=== PATIENT | male | born 1960 | race Caucasian/White ===

== ENCOUNTER 2019-04-07 14:05 | Outpatient (CLI) | payer OTHER, SELFPAY ==
[2019-04-07 14:20] VITALS: BP 147/86; PULSE 85; RESP 16; TEMP 36.6; O2SAT 98
== END 2019-04-07 14:06 | disposition home or self-care (01) ==
LOC: RHEOACUTE 14:08
PROVIDERS: Family Provider Nurse Practitioner; PCP Nurse Practitioner; Visit Provider Nurse Practitioner
DX: L40.50 Arthropathic psoriasis, unspecified (principal)
CPT/HCPCS: 96365; J0129

== ENCOUNTER 2019-05-05 15:20 | Outpatient (CLI) | payer OTHER, SELFPAY ==
[2019-05-05 15:35] VITALS: BP 158/86; PULSE 85; RESP 14; TEMP 36.6
--- NOTE | 2019-05-05 17:50 | PC.NURSE ---
INFUSION STARTED AT 1600 VIA IV TO LEFT HAND.
--- NOTE | 2019-05-05 17:50 | PC.NURSE ---
1650 INFUSION COMPLETE. NOTED SMALL AMOUNT OF SWELLING TO L HAND IV SITE WHEN REMOVING IV. IV CATH REMOVED. PRESSURE DRESSING APPLIED.
[2019-05-05 17:55] VITALS: BP 150/80; PULSE 88; RESP 16; TEMP 36.6
== END 2019-05-05 15:21 | disposition home or self-care (01) ==
LOC: RHEOACUTE 15:20
PROVIDERS: Family Provider Nurse Practitioner; PCP Nurse Practitioner; Visit Provider Internal Medicine Rheumatology
DX: L40.50 Arthropathic psoriasis, unspecified (principal); Z11.59 Encounter for screening for other viral diseases; Z79.899 Other long term (current) drug therapy; Z11.1 Encounter for screening for respiratory tuberculosis; L40.8 Other psoriasis; M67.832 Other specified disorders of synovium, left wrist; Z72.89 Other problems related to lifestyle
CPT/HCPCS: 36415; 80076; 82565; 86431; 86480; 86704; 86803; 87340; 96365; 99214; J0129

== ENCOUNTER → 2019-05-05 15:41 | Outpatient (BNVA) | payer OTHER, SELFPAY | PROVIDERS: Family Provider Nurse Practitioner; PCP Nurse Practitioner; Visit Provider Internal Medicine Rheumatology | DX: L40.50 Arthropathic psoriasis, unspecified (principal); Z71.89 Other specified counseling; Z79.899 Other long term (current) drug therapy; M67.832 Other specified disorders of synovium, left wrist | CPT/HCPCS: 85025 ==

== ENCOUNTER 2019-05-10 16:21 | Outpatient (CLI) | payer OTHER, SELFPAY ==
--- NOTE | 2019-05-10 16:27 | XR_ITS ---
WS: [id number] Chest PA inspiration and expiration, lateral views, 05/10/2019 Clinical Data: psoriatic arthritis, Comparison: PA and lateral chest, 05/08/2018. Findings: No nodules, masses or effusions are seen. The heart is normal. The pulmonary vascularity is not increased. No pneumonia or pneumothorax is seen. No air trapping on expiration was seen. XR/XR chest 3V [id number] Impression: Negative chest.
--- NOTE | 2019-05-10 16:27 | XR_ITS ---
WS: [id number] Left foot, 2 views, 05/10/2019 Clinical Data: psoriatic arthritis, pain Comparison: Left foot x-ray, 11/04/2016. Findings: No fractures or dislocations are seen. There is erosion of the lateral aspect of the head of the left fifth metatarsal unchanged.. The joint spaces and soft tissues are normal. No periarticular demineralization or calcifications seen. There is a plantar spur. XR/XR foot LT 2V [id number] Impression: 1. No change in erosion of the lateral aspect of left fifth metacarpal head. 2. No change in plantar spur.
--- NOTE | 2019-05-10 16:27 | XR_ITS ---
WS: [id number] Right foot, 2 views, 05/10/2019 Clinical Data: psoriatic arthritis, pain Comparison: Right foot x-ray, 11/04/2016. Findings: No fractures or dislocations are seen. There is erosion of the lateral aspect of the head of the righ t fifth metatarsal. No periarticular demineralization or calcifications are seen. The joint spaces an d soft tissues are normal. There is a plantar spur XR/XR foot RT 2V [id number] Impression: 1. No change in erosion of the lateral aspect of the head of the right fifth me tatarsal. 2. Small plantar spur.
== END 2019-05-10 16:22 | disposition home or self-care (01) ==
PROVIDERS: Family Provider Nurse Practitioner; PCP Nurse Practitioner; Visit Provider Internal Medicine Rheumatology
DX: L40.50 Arthropathic psoriasis, unspecified (principal); M77.8 Other enthesopathies, not elsewhere classified
CPT/HCPCS: 71047; 73620

== ENCOUNTER 2019-06-02 12:44 | Outpatient (CLI) | payer OTHER, SELFPAY ==
[2019-06-02 13:00] VITALS: BP 156/79; PULSE 84; RESP 16; TEMP 36.5; O2SAT 98
== END 2019-06-02 12:45 | disposition home or self-care (01) ==
LOC: RHEOACUTE 12:45
PROVIDERS: Family Provider Nurse Practitioner; PCP Nurse Practitioner; Visit Provider Internal Medicine Rheumatology
DX: L40.50 Arthropathic psoriasis, unspecified (principal)
CPT/HCPCS: 96365; J0129

== ENCOUNTER 2019-07-07 13:14 | Outpatient (CLI) | payer OTHER, SELFPAY ==
[2019-07-07 13:56] VITALS: BP 140/84; PULSE 63; RESP 16; TEMP 36.6; O2SAT 96
[2019-07-07 15:57] VITALS: BP 146/84; PULSE 76; RESP 16; TEMP 36.6; O2SAT 97
== END 2019-07-07 13:15 | disposition home or self-care (01) ==
LOC: RHEOACUTE 13:14
PROVIDERS: Family Provider Nurse Practitioner; PCP Nurse Practitioner; Visit Provider Internal Medicine Rheumatology
DX: L40.50 Arthropathic psoriasis, unspecified (principal); M06.00 Rheumatoid arthritis without rheumatoid factor, unspecified site; L40.0 Psoriasis vulgaris; Z79.899 Other long term (current) drug therapy
CPT/HCPCS: 36415; 96365; 99214; J0129

== ENCOUNTER 2019-08-18 15:31 | Outpatient (CLI) | payer OTHER, SELFPAY ==
[2019-08-18 15:57] VITALS: BP 140/83; PULSE 78; RESP 16; TEMP 36.5; O2SAT 97
[2019-08-18 17:40] VITALS: BP 150/82; PULSE 58; RESP 16; TEMP 36.6; O2SAT 96
== END 2019-08-18 15:32 | disposition home or self-care (01) ==
LOC: RHEOACUTE 15:32
PROVIDERS: Family Provider Nurse Practitioner; PCP Nurse Practitioner; Visit Provider Internal Medicine Rheumatology
DX: L40.50 Arthropathic psoriasis, unspecified (principal)
CPT/HCPCS: 96365; J0129

== ENCOUNTER 2019-08-30 07:39 | Outpatient (CLI) | payer OTHER, SELFPAY ==
--- NOTE | 2019-08-30 08:00 | USCV_ITS ---
Tyler Suarez Age: 59 Gender: M : 1960 Exam Date: 08/30/2019 08:00 Ordering Phys: Geovanna Hughes SIX PACK PACKER-C Technologist: Dorothy Perez Exam Location: [facility] – [place] Indication: HISTORY: Patient has history of varicose veins. PROCEDURES: Bilateral duplex Venous Insufficiency study of the Deep and Superficial systems was carried out according to normal protocol with the patient in supine positon for deep system and dependent position for the superficial system. FINDINGS: There is no evidence of RIGHT deep vein thrombosis. No evidence of superficial thrombosis in the RIGHT saphenous system. Reflux is demonstrated in the deep venous system at the level of the RIGHT POP VEIN. No evidence of reflux was noted in the LEFT deep venous system. No venous reflux noted in the RIGHT greater saphenous vein, however there is an anterior accessory vein that branches off the GSV at mid thigh level. This vein demonstrates reflux to below the knee. This vessel is very superfical and tortuous may need sugical consult. No venous reflux noted in the RIGHT small saphenous vein. Accessory superficial veins are noted in the right distal thigh and at the below- knee level reid significant reflux Venous reflux was demonstrated in the LEFT SFJ with a spectral display of greater than 500 milliseconds. Venous reflux is demonstrated in the LEFT greater saphenous vein with a spectral Doppler display of greater than 500 milliseconds at all levels evaluated. No venous reflux noted in the bilateral small saphenous vein. CONCLUSIONS No evidence of DVT in the above-mentioned identifiable veins. #1. Significant venous reflux of greater than 1000 ms was noted in the right popliteal vein #2. Significant venous reflux of greater than 500 ms(ranging anywhere from 2.21 to 2.9 secs) were noted throughout the greater saphenous vein segments on the left side including the saphenofemoral junction. The distal and the below-knee greater saphenous vein segments were less than 1 cm from the surface. 4. No significant superficial venous reflux was noted on the right side except for the accessory veins at the distal thigh and below-knee levels. But these veins were found to be very superficial. 5. The venous dimensions, reflux times and the depth from the surface are as mentioned above Dr Mami Hoff MD [facility] (Electronically Signed) Final Date: 30 August 2019 19:28 S
== END 2019-08-30 07:40 | disposition home or self-care (01) ==
LOC: RAD 07:46
PROVIDERS: PCP Nurse Practitioner Family; Visit Provider Nurse Practitioner Family
DX: I83.009 Varicose veins of unspecified lower extremity with ulcer of unspecified site (principal)
CPT/HCPCS: 93970

== ENCOUNTER 2019-09-16 20:00 | Outpatient (CLI) | payer OTHER, SELFPAY | END 2019-09-16 20:01 | disposition home or self-care (01) | LOC: SLEEP 09-17 08:44 | PROVIDERS: PCP Nurse Practitioner Family; Visit Provider Nurse Practitioner Family | DX: G47.33 Obstructive sleep apnea (adult) (pediatric) (principal) | CPT/HCPCS: 95810 ==

== ENCOUNTER 2019-09-21 14:09 | Outpatient (CLI) | payer OTHER, SELFPAY ==
--- NOTE | 2019-09-21 15:00 | USCV_ITS ---
Tyler Suarez Age: 59 Gender: M : 1960 Exam Date: 09/21/2019 15:00 Ordering Phys: Geovanna Hughes INSPECTOR BARREL-C Technologist: LANA MAR Exam Location: [facility] – [place] Indication: NON HEALING ULCER Risk Factors: Previous Vascular Surgery: RIGHT LEFT BP: 134.0 / 77.00 BP: 141.0/ 76.00 0 0 Waveform Velocity (cm/s) Velocity (cm/s) Waveform Triphasic 107.0 Iliac Prox 106.2 Triphasic Triphasic 96.9 Iliac Mid 97.9 Triphasic Triphasic 99.2 Iliac Distal 82.3 Triphasic Triphasic 83.5 REFRIGERATION MECHANIC 89.3 Triphasic Triphasic 101.2 SFA Prox 110.3 Triphasic Triphasic 98.6 SFA Mid 110.3 Triphasic Triphasic SFA Dist Triphasic 109.1 92.6 Triphasic 86.0 POP 65.5 Triphasic Triphasic 119.1 HOT TOP LINER 95.9 Triphasic Triphasic 93.7 DPA 78.3 Triphasic 1.3 JUDY 1.1 FINDINGS Normal resting ABIs bilaterally Normal arterial Doppler waveforms bilaterally Normal arterial Doppler flow velocities bilaterally CONCLUSIONS No significant arterial obstruction, based on the above findings Dr Mami Hoff MD [facility] (Electronically Signed) Final Date: 21 September 2019 20:15 S
== END 2019-09-21 14:10 | disposition home or self-care (01) ==
LOC: RAD 14:12
PROVIDERS: PCP Nurse Practitioner Family; Visit Provider Nurse Practitioner Family
DX: L97.321 Non-pressure chronic ulcer of left ankle limited to breakdown of skin (principal)
CPT/HCPCS: 93925

== ENCOUNTER 2019-10-28 17:54 | Outpatient (CLI) | payer OTHER, SELFPAY ==
--- NOTE | 2019-10-28 18:03 | XRR_ITS ---
PROCEDURE INFORMATION: Exam: XR Cervical Spine, 2 or 3 Views Exam date and time: 10/28/2019 6:32 PM Age: 59 years old Clinical indication: Neck pain and radicular pain (radiculopathy); Cervicothoracic region; Patient HX: Radiculopathy, cervical region; Left arm burning; Upper back pain/numbness and pain into left arm TECHNIQUE: Imaging protocol: XR of the cervical spine, 2 or 3 views. COMPARISON: No relevant prior studies available. FINDINGS: Vertebrae: The cervical vertebral bodies maintain height and alignment. The facets align normally. The spinolaminar line is intact. The atlantodens interval is not widened. No disc space narrowing. No osseous spinal stenosis. No fracture. Soft tissues: No prevertebral soft tissue swelling. XR/XR cervical spine 3V* [id number] IMPRESSION: No acute osseous abnormality.
--- NOTE | 2019-10-28 18:03 | XRR_ITS ---
PROCEDURE INFORMATION: Exam: XR Thoracic Spine, 3 Views Exam date and time: 10/28/2019 6:32 PM Age: 59 years old Clinical indication: Pain in thoracic spine; With radiculopathy; Patient HX: C/O radiculopathy, cervical region/numbness and pain left arm/thoracic spine pain; Additional info: Upper back pain TECHNIQUE: Imaging protocol: XR of the thoracic spine, 3 views. COMPARISON: MRI Thoracic Spine w/o* [id number] 01/25/2019 7:26 AM FINDINGS: Vertebrae: The thoracic vertebral bodies maintain overall height and alignment. There is multilevel mild disc degeneration. No acute fracture is appreciated. Soft tissues: No paraspinal soft tissue swelling. XR/XR thoracic spine 3V* [id number] IMPRESSION: Multilevel disc degeneration.
== END 2019-10-28 17:55 | disposition home or self-care (01) ==
LOC: RAD 17:56
PROVIDERS: PCP Nurse Practitioner Family; Visit Provider Nurse Practitioner
DX: M54.12 Radiculopathy, cervical region (principal); M54.6 Pain in thoracic spine; M50.30 Other cervical disc degeneration, unspecified cervical region
CPT/HCPCS: 72040; 72072

== ENCOUNTER 2019-11-09 20:00 | Outpatient (CLI) | payer OTHER, SELFPAY | END 2019-11-09 20:01 | disposition home or self-care (01) | LOC: SLEEP 11-10 09:17 | PROVIDERS: PCP Nurse Practitioner Family; Visit Provider Nurse Practitioner Family | DX: G47.33 Obstructive sleep apnea (adult) (pediatric) (principal) | CPT/HCPCS: 95811 ==

== ENCOUNTER → 2019-11-10 05:52 | Day surgery (SDC) | payer OTHER, SELFPAY ==
[2019-11-09 13:10] VITALS: BMI 30.8
--- NOTE | 2019-11-09 13:28 | SUR.PREOP ---
Follow up appointment note Called [facility] to establish follow up appointment date/time. Dr Julia Lucia's nurse state that she will make the appointment tomorrow after the procedure. If the case finishes prior to [facility] opening to leave a message on voicemail for her and she will call the patient with the appointment date/time. Noted.
[2019-11-10 06:24] VITALS: BP 150/90; PULSE 59; RESP 16; TEMP 36.5; O2SAT 59; BMI 30.8
[2019-11-10] MEDS: diazePAM 5 mg Tablet 10 MG PO (06:34)
--- NOTE | 2019-11-10 06:44 | W.PM.OPSFHP ---
Same Day Surgery H&P Indication for Procedure/HPI DATE OF PROCEDURE: November 10, 2019 Ms. Suarez is a 59-year-old gentleman who is been previously referred to our service by Ms. Geovanna Hughes to evaluate bilateral lower extremity varicose disease. Arterial duplex study reveals normal ABIs bilaterally, 1.3 on the right and 1.1 on the left. Venous duplex study with provocation was performed on August 29. The study was negative for DVT. There is substantial reflux of the left greater saphenous vein up to nearly 3 seconds which also involve the saphenofemoral junction. There was no significant reflux noted on the right saphenous system except for the accessory veins. He has CEAP classification is C5. His original exam revealed evidence of healed small ulcerations in classic venous locations. He has substantial discomfort with prolonged standing. This is improved with compression therapy. His physical examination reveals clear lung best bilaterally. Cardiovascular Char is a regular rate and rhythm without murmur gallop or rub. He does have some modest joint deformities related to his known previous rheumatoid arthritis. Lower extremity examination reveals palpable distal pulses. He does have some chronic skin changes, left greater than right in classic locations consistent with venous reflux disease which has been previously documented by duplex imaging. Neurologically he is intact without obvious sensory or motor deficit. CHIEF COMPLAINT/INDICATIONFOR SURGICAL PROCEDURE: Venous reflux disease PREOP DIAGNOSIS: Bilateral lower extremity varicose disease with documented venous reflux in the left lower extremity PLANNED PROCEDRUE: Operation Date: 11/10/19 07:00 Proposed Procedures p Venous Ablations(Left) - Gian Dumont MD Medications/Allergies* Penicillin which results in a rash; shellfish which resulted in pruritus Home Medications Medication Instructions Recorded Confirmed Type multivitamin 1 tab PO DAILY 10/07/19 11/09/19 History aspirin 81 mg tablet,delayed 81 mg PO DAILY 10/28/19 11/09/19 History release ferrous sulfate 325 mg (65 mg 325 mg PO DAILY 10/28/19 11/09/19 History iron) tablet naproxen sodium 220 mg tablet 220 mg PO QAM 10/28/19 11/09/19 History omega-3 fatty acids 1,000 mg 1,000 mg PO DAILY 10/28/19 11/09/19 History capsule zinc 1 tab PO DAILY 10/28/19 11/09/19 History Allergies/Adverse Reactions Allergy/AdvReac Type Severity Reaction Status Date / Time Penicillins Allergy ALGY-Rash Verified 11/09/19 13:03 shellfish derived Allergy ADR-Itching Verified 11/09/19 13:03 Pertinent History/Comorbid Conditions* Medical History (Updated 10/28/19 @ 14:16 by WOOD NguyễnP-C) Chronic low back pain High risk medication use Immunization counseling Obstructive sleep apnea Other specified disorders of synovium, left wrist Peripheral vascular disease Psoriatic arthritis Varicose veins of both lower extremities Venous reflux Venous stasis ulcer Surgical History (Updated 05/05/19 @ 23:46 by Gomez Sy MD) No pertinent past surgical history Family History (Updated 05/05/19 @ 14:57 by Leona Lindsey LPN) Cancer Hypertension Denies family history of Rheumatoid arthritis Lupus Social History Smoking and tobacco status: never smoked Alcohol intake: never Adopted: No Caregiver/support person: Yes Lives independently: Yes Household members: spouse Housing: House Marital status: Current occupational status: employed History of recent travel: No Current gender identity: Male Pertinent Exam Findings alert, oriented x 3, clear to auscultation bilaterally, regular rate & rhythm, operative site marked and procedure specific exam findings (Normal ABIs bilaterally. Old healed small ulcerations in classic venous locations of the left lower extremity. Market varicosities. CEAP classification C5.) Related Problem List Diagnoses (1) Varicose veins of both lower extremities: Qualifiers: Varicose vein complication: pain Qualified Code(s): I83.813 - Varicose veins of bilateral lower extremities with pain Recommendations Surgery/Procedure today (We will plan for RF catheter ablation of the left greater saphenous vein. Details the risk of the procedure were carefully and frankly discussed. Proper consents have been reviewed and signed.) Coding Level of Care Code Acute Professional Housing Consultant for g Fwd Diagnoses Varicose veins of both lower extremities I83.813 Varicose vein complication: pain
[2019-11-10 08:33] VITALS: BP 129/89; PULSE 67; RESP 16; O2SAT 96
--- NOTE | 2019-11-10 08:38 | P.OP_ITS ---
Operative Report Date of procedure: November 10, 2019 Pre-op Diagnosis: Bilateral lower extremity varicose disease with documented venous reflux in the left lower extremity Post-op diagnosis: same Procedure Done: Attempted RF catheter ablation of the left greater saphenous vein Pathology: none sent Surgeon: Gian Dumont Anesthesia: Local (1% lidocaine infiltrated locally) Complications: Surgery to marked tortuosity and large multiple branching lateral and primary health organisation manager vessels, RF catheter could not be adequately advanced to the appropriate location which would allow for ablation of the length of saphenous vein which was felt to be beneficial Condition: stable Disposition: same day Brief History: Pleasant 59-year-old gentleman with long history for venous reflux disease. Recent interrogations revealed substantial reflux of the left greater saphenous vein though there was noted tortuosity and multiple perforators. There is recent evidence of small healed ulcerations as noted from some areas of scarring. Attempt at RF catheter ablation of the left greater saphenous vein was offered to assist with the sequelae of his marked venous reflux disease. Procedure: Mr. Suarez was carefully positioned after ultrasonography of his left lower extremity was performed. Again, the tortuosity of the left greater saphenous vein was noted as well as multiple primary health organisation manager and lateral branching vessels. This was discussed with the patient preoperatively that this would be a technically challenging endeavor, but it was felt that the ability to ablate the saphenous vein would be of substantial benefit. He was then sterilely prepped and draped. We marked the location in the mid left leg medially. Once a lidocaine was infiltrated and introducer needle and guidewire was subsequently placed no the guidewire would only travel distance of about 6 to 8 cm past the needle. We then utilized ultrasound and changed out for cougar wire without success and further advancement. I elected to proceed with placement of a dilator and the sheath to hopefully increase stability and allow for further vascular of the wire. This was not successful as it was difficult to image this then wire. We did attempt to place the RF catheter itself again noted substantial resistance related to will be thought was probably disrupted valve tissue as well as the noted multiple branching perforators. At this point, we elected to proceed more proximally to the proximal leg just below the knee and again after infiltration with lidocaine, introducer needle and wire in an attempt to advance and hopefully ablate the thigh portion of the left greater saphenous vein. Unfortunately, again, we encountered the same resistance with multiple perforators and substantial tortuosity of the vein despite its size, we could not successfully advance either our introducer wire, cougar wire or RF catheter. At this point, I felt that further proximal introduction into the saphenous vein allow for ablation of only a very limited segment that would not be clinically substantially beneficial, therefore I elected to abort the procedure at this time and discussed very carefully with the patient my concerns that continued engagement and forced advancement might result in vein perforation and subsequent bleeding sequelae. He stated understanding. Therefore, with the catheter, wire, and sheath removed direct pressure was held on the reduction sites to confirm hemostasis. The leg was then wrapped with compressive gauze per protocol. Mr. Mohamud will follow-up in my clinic and we will discuss consideration for selective phlebectomy of problematic areas. I have encouraged him to wear his thigh-high compressive stockings which we had ordered previously. Associated Problem List Diagnoses (1) Venous reflux:
--- NOTE | 2019-11-10 09:05 | PC.NURSE ---
Discharge instructions Discharge instructions given to patient at this time, verbalized understanding. Pt walked to [facility] and discharged home with .
== END | disposition home or self-care (01) ==
PROVIDERS: PCP Nurse Practitioner Family; Visit Provider Thoracic Surgery (Cardiothoracic Vascular Surgery)
PROC: (CPT 36475; principal; 2019-11-10 07:00)
DX: I83.813 Varicose veins of bilateral lower extremities with pain (principal); M06.9 Rheumatoid arthritis, unspecified; Z88.0 Allergy status to penicillin; Z79.82 Long term (current) use of aspirin; G47.33 Obstructive sleep apnea (adult) (pediatric)
CPT/HCPCS: 36475; 12345; C1769; C1888; C1894; J7040; J7050

== ENCOUNTER → 2019-11-26 09:08 | Outpatient (BNVA) | payer OTHER, SELFPAY | PROVIDERS: PCP Nurse Practitioner Family; Visit Provider Thoracic Surgery (Cardiothoracic Vascular Surgery) | DX: Z11.59 Encounter for screening for other viral diseases (principal) | CPT/HCPCS: 87635 ==

== ENCOUNTER → 2019-11-29 09:03 | Outpatient (BNVA) | payer OTHER, SELFPAY | PROVIDERS: PCP Nurse Practitioner Family; Visit Provider Internal Medicine | DX: Z11.59 Encounter for screening for other viral diseases (principal) | CPT/HCPCS: 87635 ==

== ENCOUNTER 2019-12-01 05:44 | Day surgery (SDC) | payer OTHER, SELFPAY ==
[2019-11-29 09:49] LABS: Basophils % 0.4 %; Eosinophils # 0.1 10^3/uL (0.0-0.8); Eosinophils % 2.8 %; Hematocrit 46.7 % (42.0-52.0); Hemoglobin 15.6 g/dL (11.7-16.6); Lymphocytes % 38.5 %; Mean Corpuscular HGB Conc 33.4 g/dL (30.0-36.0); Mean Corpuscular Hemoglobin 31.7 pg (28.0-34.0); Mean Corpuscular Volume 94.9 fL (80-94); Mean Platelet Volume 10.1 fL (7.4-10.4); Monocytes # 0.4 10^3/uL (0.2-0.9); Monocytes % 8.1 %; Neutrophils # 2.54 10^3/uL (1.8-7.7); Neutrophils % 50.2 %; Nucleated Red Blood Cells % 0 %; Platelet Count 184 10^3/cmm (130-400); Red Blood Count 4.92 10^6/uL (4.1-5.3); Red Cell Distribution Width 12.3 % (12.1-15.1); White Blood Count 5.1 10^3/uL (4.0-10.0)
--- NOTE | 2019-11-29 09:58 | ANES.PREANE2 ---
Pre-Anesthetic Assessment Pre-Anesthetic Assessment: Height/Weight: Height 1.96 m Weight 116.573 kg Preop Diagnosis: Highly symptomatic varicose veins Proposed Procedure: Operation Date: 12/01/19 07:00 Proposed Procedures p Phlebectomy left leg(Left) - Gian Dumont MD Familial anesthetic complications: None Social: Social History: No alcohol and No tobacco Exam: Pre-Anes Outpt Exam: alert, oriented x 3, clear to auscultation bilaterally and regular rate & rhythm Airway: Cervical ROM: WNL MP: 4 Dentition: Full Pulmonary: Pulmonary: Sleep apnea (CPAP) CV/HEM: CV/HEM: PVD Musc/skel: Musc/skel: Lower Back Pain Comments: L shoulder pain psoriatic and rheumatoid arthritis - neck ok Neuropsych: Neuropsych: Neuropathy (l arm ) Anesthetic Plan: ASA status: 1 Anesthesia: General Risk of > 500 ml blood loss (7ml/kg in children): No PFSH Anesthesia PFSH: Medical History (Updated 11/25/19 @ 10:30 by Payton Villavicencio LPN) Chronic low back pain High risk medication use Immunization counseling Obstructive sleep apnea Other specified disorders of synovium, left wrist Peripheral vascular disease Psoriatic arthritis Varicose veins of both lower extremities Venous reflux Venous stasis ulcer Surgical History No pertinent past surgical history Family History Other Cancer Hypertension Denies family history of Rheumatoid arthritis Lupus Social History Smoking and tobacco status: never smoked Alcohol intake: never Adopted: No Caregiver/support person: Yes Lives independently: Yes Household members: spouse Housing: House Marital status: Current occupational status: employed History of recent travel: No Current gender identity: Male Data Anesthesia CBC & Chem 7: 11/29/19 09:30 11/29/19 09:30 Other Labs: Laboratory Results - last 48 hr 11/29/19 09:30 WBC 5.1 RBC 4.92 Hgb 15.6 Hct 46.7 MCV 94.9 H MCH 31.7 MCHC 33.4 RDW 12.3 Plt Count 184 MPV 10.1 Neut % (Auto) 50.2 Lymph % (Auto) 38.5 Kin[place] % (Auto) 8.1 Eos % (Auto) 2.8 Baso % (Auto) 0.4 Neut # (Auto) 2.54 Lymph # (Auto) 2.0 Kinney # (Auto) 0.4 Eos # (Auto) 0.1 Baso # (Auto) 0.0 Nucleated RBC % (auto) 0 Nucleated RBCs # 0.0 Cardiac Studies: No Data to Display
[2019-11-29 10:11] LABS: Anion Gap 12.5 (5-19); Blood Urea Nitrogen 15 mg/dL (8-23); Calcium 9.1 mg/dL (8.5-10.5); Carbon Dioxide 30 mmol/L (22-29); Chloride 102 mmol/L (98-107); Glomerular Filtration Rate 98.3 mL/min (90-130); Glucose 109 mg/dL (65-115); Osmolality Calculated 287 mOsm/kg (285-295); Potassium 4.5 mmol/L (3.5-5.1); Sodium 140 mmol/L (136-145)
[2019-12-01 06:11] VITALS: BP 171/90; PULSE 54; RESP 18; TEMP 36.3; O2SAT 96
[2019-12-01] MEDS: sodium chloride 0.9% 1,000 ML 30 ML IV (06:36)
--- NOTE | 2019-12-01 06:44 | ANES.PAUD2 ---
Pre-Anesthetic Update Pre-Anesthetic Assessment: Date of Surgery/Procedure: 12/01/19 Preop Diagnosis: Highly symptomatic varicose veins Proposed Procedure: Operation Date: 12/01/19 07:00 Proposed Procedures p Phlebectomy left leg(Left) - Gian Dumont MD Any changes to Pre-Anesthetic Assessment?: No Last Intake: Intake Last Liquid Date 11/30/19 Last Liquid Time 19:00 Last Solid Date 11/30/19 Last Solid Time 19:00 Labs Last 48hrs: Laboratory Results - last 48 hr 11/29/19 11/29/19 09:30 09:30 WBC 5.1 RBC 4.92 Hgb 15.6 Hct 46.7 MCV 94.9 H MCH 31.7 MCHC 33.4 RDW 12.3 Plt Count 184 MPV 10.1 Neut % (Auto) 50.2 Lymph % (Auto) 38.5 [place] % (Auto) 8.1 Eos % (Auto) 2.8 Baso % (Auto) 0.4 Neut # (Auto) 2.54 Lymph # (Auto) 2.0 [place] # (Auto) 0.4 Eos # (Auto) 0.1 Baso # (Auto) 0.0 Nucleated RBC % (a uto) 0 Nucleated RBCs # 0.0 Sodium 140 Potassium 4.5 Chloride 102 Carbon Dioxide 30 H Anion Gap 12.5 BUN 15 Creatinine 0.8 GFR Calculation 98.3 Glucose 109 Calculated Osmolal ity 287 Calcium 9.1 Vitals: Temperature 97.3 F L 12/01/19 06:11 Temperature Source Temporal Artery S can 12/01/19 06:11 Pulse Rate 54 L 12/01/19 06:11 Respiratory Rate 18 12/01/19 06:11 Blood Pressure 171/90 12/01/19 06:11 Blood Pressure Camila n 117 12/01/19 06:11 Pulse Oximetry 96 12/01/19 06:11 Oxygen Delivery Me thod 12/01/19 06:11 Exam: Pre-Anes Outpt Exam: alert, oriented x 3, clear to auscultation bilaterally and regular rate & rhythm Cardiac Studies: No Data to Display
[2019-12-01] MEDS: vancomycin 1,000 MG in sodium chloride 0.9% 250 ML 250 MG IV (07:57)
[2019-12-01] MEDS: lidocaine 1% INJ 20 mL SUBCUT (09:15)
[2019-12-01] MEDS: vancomycin 1,000 MG SDV 1000 MG IRRIGATION (09:15)
--- NOTE | 2019-12-01 11:58 | PM.OP ---
Operative Report Date of procedure: December 01, 2019 Pre-op Diagnosis: Highly symptomatic varicose veins Post-op diagnosis: same Procedure Done: Segmental phlebectomy the left greater saphenous vein Specimens removed/disposition: Segmental sections of severely varicose and tortuous portions of the left greater saphenous vein Surgeon: Gian Dumont Anesthesia: Local (7 cc 1% lidocaine infiltrated locally) and Other (Laryngeal mask anesthesia) Complications: None Condition: stable Disposition: PACU Brief History: Mr. Suarez is a 59-year-old gentleman with severe bilateral lower extremity varicose veins, CEAP classification C5. We had a failed attempt at RF catheter ablation of the very tortuous left greater saphenous vein. Due to the highly symptomatic segments of this severe varicose vein, we recommended isolated, segmental phlebectomy of problematic areas. He has worn thigh-high compression for extended period of time he does have symptomatic relief. His greatest concerns are behind his left knee and also in the mid pretibial region. Details and risks of the procedure were discussed including potential for wound healing complications, continued formation of further varicose veins, need for further procedures, and lack of symptom relief despite phlebectomy. Proper consents have been provided for review and signature. Procedure: Mr. Suarez was taken operating room theater where while in the standing position, we carefully marked problematic areas behind his left knee medially as well as on the pretibial region in the mid one third of the left lower leg. He was then placed on the OR table where he underwent sedation and subsequent laryngeal mask anesthesia by our anesthesia colleagues. His entire left leg was then sterilely prepped and draped. He was placed in reverse Trendelenburg position which allowed for further dislocation of the problematic regions which had been previously marked. Following this, distal getting in the knee area medially, 3 longitudinal incisions were made obliquely across the problematic regions and using sharp and blunt dissection, the varicose veins were dissected free. Perforating and lateral branches were carefully isolated and secured with clips or ligature as required by the vein size. This was done in a symptomatic fashion from proximal to distal with subsequent securing of the veins most proximal distal and utilizing combination of 2 OR 3-0 suture followed by 3-0 suture ligature of Vicryl suture. Segments were subsequent removed and provided for pathology. Following this, we then proceeded down to the mid leg region and the anterior medial aspect where another substantial section of varicose veins had been marked. An oblique incision was made across this region and extended further distally. Again, utilizing blunt and sharp dissection, these group of veins were also carefully isolated with perforating and lateral branches being secured prior to division. Subsequently, utilizing 2-0 and 3-0 Vicryl or silk suture as well as 3-0 suture ligature, the proximal distal ends of the segment of veins were also secured prior to division. The specimen was also delivered to pathology. With confirmation of hemostasis, all wounds were irrigated with antibiotic solution. Hemostasis confirmed. Sponge and needle count was correct. Wounds were then closed in a combination of 2-0 and 3-0 Vicryl suture with the skin being reapproximated with Monocryl suture in a subcuticular manner. Sterile dressings were applied. Patient was placed in Trendelenburg position at this time which time we simply applied a compressive wrap from the base of the toes to the proximal left thigh. Mr. Suarez tolerate procedure well was awakened and simply taken to recovery. His is been kept informed throughout the procedure as to our progress. She was also updated completion.
[2019-12-01 12:10] VITALS: BP 124/78; PULSE 59; RESP 18; TEMP 36.8; O2SAT 98
[2019-12-01 12:15] VITALS: BP 122/79; PULSE 52; RESP 15; O2SAT 96
--- NOTE | 2019-12-01 12:17 | SUR.PHASEI ---
1210- RECEIVED PATIENT IN PACU FROM OR VIA [facility]. RESP ARE EVEN AND NONLABORED. ORAL AIRWAY IN PLACE, SIMPLE MASK APPLIED AT 6LPM, SAT 98%. HE IS LETHARGIC. LLE IS WARM TO TOUCH WITH PPP. DRESSING IS DRY AND INTACT. NO S/S PAIN OR NAUSEA
[2019-12-01 12:20] VITALS: BP 120/74; PULSE 77; RESP 16; O2SAT 100
--- NOTE | 2019-12-01 12:21 | SUR.PHASEI ---
1219- ORAL AIRWAY OUT, SIMPLE MASK IN PLACE AT 6LPM, SAT 100%
[2019-12-01 12:25] VITALS: BP 128/66; PULSE 62; RESP 16; TEMP 36.3; O2SAT 96
--- NOTE | 2019-12-01 12:27 | ANE.PACU2 ---
Inpatient post-anesthesia follow up: Airway intact: Yes Vital signs: Temperature 98.2 F Pulse Rate 77 Respiratory Rate 16 Blood Pressure 120/74 Pulse Oximetry 100 Oxygen Delivery Me thod Simple Mask Oxygen Flow Rate 6 Fraction of Inspir ed Oxygen Hydration adequate: Yes Nausea and vomiting: No Pain level: 2 Mental status: Baseline
[2019-12-01 12:30] VITALS: BP 145/89; PULSE 54; RESP 16; TEMP 36.3; O2SAT 99
--- NOTE | 2019-12-03 05:48 | W.PM.OPSUD ---
Surgery/Procedure H&P Update DATE OF PROCEDURE: December 01, 2019 DATE H&P PERFORMED: 11/18/19 H&P UPDATE INFORMATION: I have reviewed H&P completed within last 30 days, I have examined patient prior to procedure and No changes to prior documentation PREOP DIAGNOSIS: Highly symptomatic varicose veins PRIMARY INDICATION FOR PROCEDURE: Longstanding, highly symptomatic varicose veins that were not amenable to radiofrequency catheter ablation. PLANNED PROCEDURE: Operation Date: 12/01/19 07:00 Proposed Procedures p Phlebectomy left leg(Left) - Gian Dumont MD
== END 2019-12-01 13:37 | disposition home or self-care (01) ==
PROVIDERS: PCP Nurse Practitioner Family; Visit Provider Thoracic Surgery (Cardiothoracic Vascular Surgery)
PROC: (CPT 37765; principal; 2019-12-01 07:00)
DX: I83.813 Varicose veins of bilateral lower extremities with pain (principal); Z79.82 Long term (current) use of aspirin; Z88.0 Allergy status to penicillin; M06.9 Rheumatoid arthritis, unspecified; G47.33 Obstructive sleep apnea (adult) (pediatric)
CPT/HCPCS: 37765; 12345; 36415; 80048; 85025; 88304; J1100; J1885; J2405; J2704; J3010; J3370; J7030; J7050

== ENCOUNTER → 2019-12-25 11:35 | Outpatient (BNVA) | payer OTHER, SELFPAY | PROVIDERS: PCP Nurse Practitioner Family; Visit Provider Emergency Medicine | DX: Z11.59 Encounter for screening for other viral diseases (principal) | CPT/HCPCS: 87635 ==

== ENCOUNTER 2020-01-31 14:41 | Outpatient (CLI) | payer OTHER, SELFPAY ==
--- NOTE | 2020-01-31 15:08 | MR_ITS ---
WS: [id number] MRI CERVICAL SPINE HISTORY: CERVICAL REGION RADICULOPATHY COMPARISON: None available. Mild straightening of the normal cervical lordosis. Mild disc space narrowing and desiccation throughout the cervical spine. Signal within the cord is no rmal. Posterior cerebellar arachnoid cyst. Craniocervical junction, C1 and C2 relationship, odontoid process and soft tissues are normal. C2-C3: Tiny central disc protrusion. C3-C4: Mild annular disc bulging and osteophytic ridging. Central disc protrusion. C4-C5: Mild annular disc bulging and osteophytic ridging. Mild encroachment upon the ventral thecal s ac without significant stenosis. C5-C6: Moderate RIGHT paracentral disc protrusion with effacement of ventral CSF. Mild central and RI GHT foraminal stenosis. C6-C7: Shallow central disc protrusion with near complete effacement of ventral CSF and small annular fissure. Small bilateral foraminal osteophytes. There is mild central and bilateral foraminal stenos is. C7-T1: Normal. Paraspinal soft tissue are normal. MR/MR cervical spin wo con* [id number] IMPRESSION: 1. Moderate RIGHT paracentral disc protrusion at C5-6 resulting in mild centra l and RIGHT foraminal stenosis. 2. Mild central and bilateral foraminal stenosis at C6-7 due to disc and osteo phyte disease. 3. Tiny central disc protrusions at C2-3 and C3-4.
--- NOTE | 2020-01-31 15:08 | MR_ITS ---
WS: [id number] MRI THORACIC SPINE without contrast. HISTORY: CERVICAL REGION RADICULOPATHY COMPARISON: 01/25/2019 TECHNIQUE: Multiplanar sequences are performed in sagittal and axial planes. Mild increase in thoracic kyphosis. No marrow edema or acute fractures. Signal within the cord and ve rtebral bodies is normal. There is mild disc desiccation in the mid thoracic spine and disc space collins rowing most significant at T6-7 and T7-8. Small disc protrusions are noted in the cervical spine at C 5-6 and C6-7 as before. T3 hemangioma. T1-2: Mild RIGHT foraminal narrowing. T2-3: Normal. T3-4: Normal. T4-5: Small vertebral body osteophytes causing very mild narrowing at the RIGHT foramen. T5-6: Mild RIGHT foraminal narrowing due to osteophytes. Facet joint arthritis on the LEFT causing m ild encroachment into the posterior lateral thecal sac. T6-7: Mild bilateral facet joint arthritis. T7-8: Moderate bilateral facet joint arthritis with mild foraminal narrowing. T8-9: Moderate bilateral facet joint arthritis with mild encroachment narrowing of the foramen. T9-10: Mild bilateral facet joint arthritis and mild foraminal narrowing. T10-11: Mild facet arthritis. T11-12: Normal. Hepatic cyst measures 1.3 cm. MR/MR thoracic spin wo con* [id number] IMPRESSION: 1. No significant disc protrusions, central or foraminal stenosis. 2. Facet joint arthritis is mild to moderate throughout the thoracic spine. Mo st significant from T5-6 through T9-10. No significant progression since the pr ior exam.
== END 2020-01-31 14:42 | disposition home or self-care (01) ==
LOC: RADWPI 14:43
PROVIDERS: PCP Nurse Practitioner Family; Visit Provider Nurse Practitioner
DX: M54.12 Radiculopathy, cervical region (principal); M47.814 Spondylosis without myelopathy or radiculopathy, thoracic region; M25.78 Osteophyte, vertebrae; M50.21 Other cervical disc displacement, high cervical region
CPT/HCPCS: 72141; 72146

== ENCOUNTER → 2020-02-16 15:06 | Outpatient (BNVA) | payer OTHER, SELFPAY | PROVIDERS: PCP Nurse Practitioner Family; Visit Provider Internal Medicine Rheumatology | DX: L40.50 Arthropathic psoriasis, unspecified (principal); Z79.899 Other long term (current) drug therapy; I73.9 Peripheral vascular disease, unspecified; M65.88 Other synovitis and tenosynovitis, other site | CPT/HCPCS: 99214 ==

== ENCOUNTER → 2020-04-06 07:51 | Outpatient (BNVA) | payer OTHER, SELFPAY | PROVIDERS: PCP Nurse Practitioner Family; Visit Provider Nurse Practitioner Family | DX: Z20.828 Contact with and (suspected) exposure to other viral communicable diseases (principal) | CPT/HCPCS: 87635 ==

== ENCOUNTER → 2020-07-05 15:17 | Outpatient (BNVA) | payer OTHER, SELFPAY | PROVIDERS: PCP Nurse Practitioner Family; Visit Provider Internal Medicine Rheumatology | DX: L40.50 Arthropathic psoriasis, unspecified (principal); L40.0 Psoriasis vulgaris; Z79.899 Other long term (current) drug therapy; Z79.1 Long term (current) use of non-steroidal anti-inflammatories (NSAID) | CPT/HCPCS: 99214 ==

== ENCOUNTER → 2020-10-05 15:14 | Outpatient (BNVA) | payer OTHER, SELFPAY | PROVIDERS: PCP Nurse Practitioner Family; Visit Provider Internal Medicine Rheumatology | DX: L40.50 Arthropathic psoriasis, unspecified (principal); L40.0 Psoriasis vulgaris; Z79.899 Other long term (current) drug therapy; Z79.1 Long term (current) use of non-steroidal anti-inflammatories (NSAID); Z71.89 Other specified counseling | CPT/HCPCS: 99214 ==

== ENCOUNTER → 2021-01-30 13:19 | Outpatient (BNVA) | payer OTHER, SELFPAY | PROVIDERS: PCP Nurse Practitioner Family; Visit Provider Internal Medicine Rheumatology | DX: L40.50 Arthropathic psoriasis, unspecified (principal); L40.0 Psoriasis vulgaris; Z79.899 Other long term (current) drug therapy; Z71.89 Other specified counseling; Z79.1 Long term (current) use of non-steroidal anti-inflammatories (NSAID) | CPT/HCPCS: 99214 ==

== ENCOUNTER 2021-11-13 09:45 | Outpatient (CLI) | payer OTHER, SELFPAY ==
--- NOTE | 2021-11-13 10:05 | XR_ITS ---
WS: [id number] Exam: XR lumbar spine 2-3V* [id number] Date/Time of Exam: 11/13/2021 10:08 AM Reason For Exam: BACK PAIN Comparison 01/13/2019. No fracture or dislocation noted. Degenerative disc narrowing at L1-2 with spondylosis of L1 on L2. R emaining disc spaces are preserved. Remaining posterior elements are unremarkable. XR/XR lumbar spine 2-3V* [id number] IMPRESSION: 1. No fracture or malalignment. 2. Degenerative disc changes at L1-2 with spondylosis of the L1-L2 vertebral ryne dies.
--- NOTE | 2021-11-13 10:05 | XR_ITS ---
WS: [id number] Exam: XR hand RT 2V [id number] Date/Time of Exam: 11/13/2021 10:08 AM Reason For Exam: R HAND PAIN Comparison 11/04/2016. No fracture or dislocation noted. Degenerative narrowing of the third MP joint. Moderate degenerative changes at the radiocarpal articulation. No soft tissue foreign bodies are seen. XR/XR hand RT 2V [id number] IMPRESSION: 1. No fracture or dislocation. 2. Stable appearing degenerative changes since previous exam.
== END 2021-11-13 09:46 | disposition home or self-care (01) ==
LOC: RAD 09:47
PROVIDERS: PCP Nurse Practitioner Family; Visit Provider Dermatology
DX: Z02.71 Encounter for disability determination (principal); M79.641 Pain in right hand; M54.9 Dorsalgia, unspecified
CPT/HCPCS: 72100; 73120

== ENCOUNTER 2022-07-16 10:44 | Outpatient (CLI) | payer OTHER, SELFPAY ==
--- NOTE | 2022-07-16 11:01 | XR_ITS ---
WS: [id number] XR knee RT 3V* [id number] REASON FOR EXAM: M25.569 - Pain in unspecified knee FINDINGS: Mild narrowing of the medial and lateral knee joint spaces with mild subchondral sclerosis. Small ost eophytes of the medial and lateral tibial plateaus. Mild narrowing of the patellofemoral joint space with moderate subchondral sclerosis and small osteop hytosis of the patella. XR/XR knee RT 3V* [id number] IMPRESSION: Mild osteoarthritis of the right knee as above.
--- NOTE | 2022-07-16 13:30 | USCV_ITS ---
Tyler Suarez Age: 62 Gender: M : 1960 Exam Date: 07/16/2022 11:37 Ordering Phys: Geovanna Hughes [employer] Technologist: Exam Location: [facility] [place] Indication: rt leg pain PROCEDURES: Venous duplex imaging was performed in only the right lower extremity. The following venous structures were evaluated: common femoral vein, profunda vein, proximal portion of the greater saphenous vein, superficial femoral vein, and the popliteal vein. In addition, the posterior tibial and peroneal trunk were evaluated. FINDINGS: Normal 2-D Doppler and augmentation and compressibility throughout the lower extremity venous structures. Additional imaging through the proximal calf veins also reveals no thrombus. Limited evaluation of the greater saphenous vein is patent with no thrombus. Complex cystic mass with low level echos and no vascularity measuring 4.7 cm in the right popliteal fossa. CONCLUSIONS No DVT right lower extremity. Right popliteal fossa Grigsby's cyst. Dr. Vero Lezama DO (Electronically Signed) Final Date: 16 Jul 2022 15:46 S
== END 2022-07-16 10:45 | disposition home or self-care (01) ==
PROVIDERS: PCP Nurse Practitioner Family; Visit Provider Nurse Practitioner Family
DX: I73.9 Peripheral vascular disease, unspecified (principal); L53.9 Erythematous condition, unspecified; M79.604 Pain in right leg; M79.89 Other specified soft tissue disorders; M79.669 Pain in unspecified lower leg; M25.569 Pain in unspecified knee; M71.21 Synovial cyst of popliteal space [Baker], right knee; M17.11 Unilateral primary osteoarthritis, right knee
CPT/HCPCS: 73562; 93971

== ENCOUNTER → 2022-08-14 15:00 | Outpatient (BNVA) | payer OTHER, SELFPAY | PROVIDERS: PCP Nurse Practitioner Family; Referring Provider Nurse Practitioner Family; Visit Provider Specialist | DX: M71.21 Synovial cyst of popliteal space [Baker], right knee (principal); M17.11 Unilateral primary osteoarthritis, right knee | CPT/HCPCS: 73560; 73565 ==

== ENCOUNTER → 2022-10-23 14:57 | Outpatient (BNVA) | payer OTHER, SELFPAY | PROVIDERS: PCP Nurse Practitioner Family; Visit Provider Internal Medicine Cardiovascular Disease | DX: R06.02 Shortness of breath (principal) | CPT/HCPCS: 93005 ==

== ENCOUNTER 2022-10-23 15:16 | Outpatient (CLI) | payer OTHER, SELFPAY ==
--- NOTE | 2022-10-23 15:26 | XRR_ITS ---
PROCEDURE INFORMATION: Exam: XR Chest Exam date and time: 10/23/2022 3:46 PM Age: 62 years old Clinical indication: Shortness of breath; Additional info: R06.02 - shortness of breath TECHNIQUE: Imaging protocol: Radiologic exam of the chest. Views: 2 views. COMPARISON: CR XR chest 3V [id number] 05/10/2019 5:00 PM FINDINGS: Lungs: Right lower lobe atelectasis. Pleural spaces: Unremarkable. No pleural effusion. No pneumothorax. Heart/Mediastinum: Unremarkable. No cardiomegaly. Bones/joints: Unremarkable. XR/XR chest 2V* [id number] IMPRESSION: Right lower lobe atelectasis.
== END 2022-10-23 15:17 | disposition home or self-care (01) ==
PROVIDERS: PCP Nurse Practitioner Family; Visit Provider Nurse Practitioner Family
DX: J98.11 Atelectasis (principal)
CPT/HCPCS: 71046

== ENCOUNTER → 2022-11-06 08:56 | Outpatient (BNVA) | payer OTHER, SELFPAY | PROVIDERS: PCP Nurse Practitioner Family; Visit Provider Nurse Practitioner Family | DX: R06.02 Shortness of breath (principal) | CPT/HCPCS: 71046 ==

== ENCOUNTER 2022-11-14 06:10 | Outpatient (CLI) | payer OTHER, SELFPAY ==
--- NOTE | 2022-11-14 06:30 | USCV_ITS ---
Tyler Suarez Age: 62 Gender: M : 1960 Exam Date: 11/14/2022 06:27 Ordering Phys: Geovanna Hughes Technologist: KELY Exam Location: [facility] [place] Indication: SHORTNESS OF BREATH BP: 130 / 82 HR: 75 Rhythm: Sinus Technical Quality: Adequate MEASUREMENTS (Male / Female) Normal Values 2D ECHO LVOT Diameter 2.0 cm LV Ejection Fraction MOD 2C 67.8 % LV Ejection Fraction 2C AL 69.4 % LA Diameter 3.8 cm LA Width 4.7 cm LA Height 5.5 cm RA Width 3.0 cm RA Height 5.1 cm Aorta at Sinotubular Diameter 2.7 cm IVC Diameter 1.7 cm M-MODE Aortic Annulus Diameter 3.3 cm LA Ao Ratio MM 1.1 MV E Point Septal Separation 0.4 cm DOPPLER AV Peak Velocity 172.0 cm/s LVOT Peak Velocity 134.0 cm/s AV Area Cont Eq vti 2.7 cm squared AV Area Cont Eq pk 2.4 cm squared MV Peak Velocity 101.0 cm/s MV Area PHT 2.7 cm squared Mitral E to A Ratio 1.0 MV E' Velocity 50.5 cm/s Mitral E to MV E' Ratio 8.5 Mitral E to LV E' Lateral Ratio 6.9 Mitral E to LV E' Septal Ratio 11.3 TR Peak Velocity 258.3 cm/s TR Peak Gradient 26.7 mmHg TR Mean Velocity 186.3 cm/s TR Mean Gradient 15.6 mmHg TR Velocity Time Integral 67.9 cm TV Peak E Velocity 51.0 cm/s Right Atrial Pressure 3.0 mmHg Pulmonary Artery Systolic Pressu 29.7 mmHg PV Peak Velocity 115.0 cm/s RV Acceleration Time 0.1 s RV Ejection Time 0.3 s RV AcT/ET 0.4 FINDINGS Left Ventricle Normal left ventricular size, systolic function and wall thickness, with no regional wall motion abnormalities. Left ventricular ejection fraction is estimated at 65 %. Normal diastolic function. Right Ventricle Normal right ventricular size and systolic function. Right ventricular systolic pressure 29.7 mmHg. Right Atrium Normal right atrial size. Left Atrium Mildly increased left atrial size. Mitral Valve Structurally normal mitral valve. No mitral valve stenosis. Trace mitral valve regurgitation. Aortic Valve Structurally normal trileaflet aortic valve. No aortic valve stenosis. Mild aortic valve regurgitation. Tricuspid Valve Structurally normal tricuspid valve. No tricuspid valve stenosis. Trace tricuspid valve regurgitation. Pulmonic Valve Pulmonic valve not well visualized. Pericardium No pericardial effusion. Aorta Normal size aortic root and proximal ascending aorta. IVC Normal IVC dimension with >50% respiratory change of the inferior vena cava. CONCLUSIONS 1. Normal left ventricular size, systolic function and wall thickness, with no regional wall motion abnormalities. Left ventricular ejection fraction is estimated at 65 %. Normal diastolic function. 2. Mild aortic valve regurgitation. 3. No prior similar studies to compare. Dorothy Mortensen MD (Electronically Signed) Final Date: 24 November 2022 23:23 S
== END 2022-11-14 06:11 | disposition home or self-care (01) ==
PROVIDERS: PCP Nurse Practitioner Family; Visit Provider Nurse Practitioner Family
DX: I35.1 Nonrheumatic aortic (valve) insufficiency (principal); R06.02 Shortness of breath
CPT/HCPCS: 93306

== ENCOUNTER → 2023-01-21 14:01 | Outpatient (BNVA) | payer MEDICARE, OTHER, SELFPAY | PROVIDERS: PCP Nurse Practitioner Family; Visit Provider Internal Medicine Rheumatology | DX: Z79.899 Other long term (current) drug therapy (principal); L40.50 Arthropathic psoriasis, unspecified; M06.9 Rheumatoid arthritis, unspecified; Z71.89 Other specified counseling | CPT/HCPCS: 99214 ==

== ENCOUNTER 2023-01-31 15:45 | Outpatient (CLI) | payer MEDICARE, OTHER, SELFPAY ==
--- NOTE | 2023-01-31 16:15 | USR_ITS ---
PROCEDURE INFORMATION: Exam: US Duplex Left Lower Extremity Veins, Limited Exam date and time: 01/31/2023 3:55 PM Age: 62 years old Clinical indication: Varicose veins of lower extremities; Additional info: I83.813 - varicose veins of bilateral lower extremities w. . . TECHNIQUE: Imaging protocol: Real-time duplex ultrasound of the left extremity with 2-D mejia scale, color Doppler flow and spectral waveform analysis including responses to compression and other maneuvers (when performed) with image documentation. Limited exam focused on the left lower extremity veins. COMPARISON: No relevant prior studies available. FINDINGS: Left deep veins: Unremarkable. The common femoral, femoral, proximal profunda femoral and popliteal veins are patent without thrombus. Normal Doppler waveforms. Normal compressibility and augmentation response. Superficial veins: Unremarkable. Saphenofemoral junction is patent without thrombus. Multiple medial infrapopliteal varicosities, measuring up to 9 mm caliber, including incompletely occlusive medium echogenicity thrombus (5 mm caliber). Soft tissues: Soft tissue edema of the superficial calf adipose. 5.1 x 1.2 x 1.4 cm grigsby cyst. US/CV venous duplex [facility] [id number] IMPRESSION: No evidence of deep vein thrombosis. Superficial venous varicosities with incompletely superficial venous occlusive thrombus. Grigsby cyst.
== END 2023-01-31 15:46 | disposition home or self-care (01) ==
LOC: RAD 15:46
PROVIDERS: PCP Nurse Practitioner Family; Visit Provider Nurse Practitioner Family
DX: I83.813 Varicose veins of bilateral lower extremities with pain (principal); M79.662 Pain in left lower leg; M79.89 Other specified soft tissue disorders
CPT/HCPCS: 93971

== ENCOUNTER 2023-01-31 16:31 | Emergency (ER) | payer MEDICARE, OTHER, SELFPAY ==
[2023-01-31 16:34] VITALS: BP 166/89; PULSE 80; RESP 18; O2SAT 98; BMI 32.5
[2023-01-31 16:52] VITALS: PULSE 60
--- NOTE | 2023-01-31 17:03 | ED_ITS ---
HPI - Extremity Problem General: Chief complaint: Extremity Injury, Lower Stated complaint: left leg swollen/painful Time Seen by Provider: 01/31/23 16:34 History of Present Illness: Patient presents to the ER because he had ultrasound of his left lower extremity earlier today and said he was sent over here to get the results. Reason the patient had his ultrasound is because he has left leg swelling for the last few weeks even though he is on Lasix. His PCP sent him for the ultrasound to rule out DVT. Review of Systems General: Reports: 10 or more systems reviewed and unremarkable except in HPI and below PFSH ED PFSH: Medical History Chronic low back pain Chronic steroid use High risk medication use High risk medication use Immunization counseling NSAID long-term use Obstructive sleep apnea Other specified disorders of synovium, left wrist Peripheral vascular disease Psoriatic arthritis Synovial cyst of popliteal space [Grigsby], right knee Varicose veins of both lower extremities Venous reflux Venous stasis ulcer Surgical History No pertinent past surgical history Family History Other Cancer Hypertension Denies family history of Rheumatoid arthritis Lupus Social History Smoking and tobacco/nicotine status: never used tobacco/nicotine Alcohol intake: never Substance/Drug Use: never Adopted: No Caregiver/support person: Yes Lives independently: Yes Household members: spouse Housing: House Marital status: Current occupational status: employed Current gender identity: Male Physical Exam Const: COMMON NORMALS: no acute distress, average body habitus, patient oriented x3, no limitations, healthy appearing, alert and well nourished HENMT: COMMON NORMALS: normocephalic, hearing grossly normal bilaterally, external ears normal, Normal external nose present, moist oral mucous membranes and oropharynx normal HEAD & SCALP: normocephalic NOSE: Normal external nose present EXTERNAL EAR: Yes external ears normal Neck/C-Spine: COMMON NORMALS: no JVD Chest: COMMONS NORMALS: normal inspection of the chest Resp: COMMON NORMALS: normal respiratory effort, No retractions, No use of accessory muscles and clear to auscultation bilaterally AUSCULTATION: clear to auscultation bilaterally Cardio: COMMON NORMALS: no JVD, regular rate, regular rhythm, S1 normal heart sound present, S2 normal heart sound present, No gallops present (Cardio), No clicks present (Cardio), No murmurs present (Cardio) and No rub (Cardio) RATE : regular rate RHYTHM: regular rhythm HEART SOUNDS: S1 normal heart sound present and S2 normal heart sound present Extremity: NARRATIVE EXTREMITY EXAM: Left lower leg edematous Neuro: COMMON NORMALS: patient oriented x3 SENSORIUM/ORIENTATION: Yes alert Course Vital Signs: Vital signs: Vital Signs Pulse Rate 60 01/31/23 16:52 Respiratory Rate 18 01/31/23 16:34 Blood Pressure 166/89 01/31/23 16:34 Pulse Oximetry 98 01/31/23 16:34 Oxygen Delivery Me thod Room Air 01/31/23 16:34 MDM - Extremity (Nontraumatic) Medical Decision Making Patient had an ultrasound done earlier today for left lower leg swelling. The ultrasound was negative for DVT and positive for superficial venous thrombus of 5 mm and a 9 mm vessel. Patient was informed of these results and will be discharged home to use heat and anti-inflammatories and following up with his PCP in the next 7 days or as needed. Differential Diagnosis Likely superficial thrombophlebitis; Unlikely herpes zoster, gout, cellulitis, deep venous thrombosis of upper extremity, lower extremity edema or deep vein thrombosis of lower extremity Medical Records I reviewed the patient's medical records. Lab Data I reviewed the patient's lab results. No radiology studies performed this visit Discharge Plan Discharge Patient Disposition: Home Clinical Impression: Acute superficial venous thrombosis of left lower extremity Condition: Stable Prescriptions: No Action multivitamin [Multiple Vitamins] Tablet 1 tab PO DAILY aspirin [Adult Low Dose Aspirin] 81 mg tablet,delayed release (DR/EC) 81 mg PO DAILY ferrous sulfate 325 mg (65 mg iron) tablet 325 mg PO DAILY zinc 50 mg PO DAILY omega-3 fatty acids [Fish Oil Concentrate] 1,000 mg capsule 1,000 mg PO DAILY Cimzia 400 mg/2 mL (200 mg/mL x 2) syringe kit See Rx Instructions .ROUTE .COMPLEX Qty: 2 3RF Hold Instructions: Doctor's Order Dose Instruction: inject 200mg SUBCUTANEOUSLY EVERY 14 DAYS Rx Instructions: inject 200mg SUBCUTANEOUSLY EVERY 14 DAYS pantoprazole 40 mg tablet,delayed release (DR/EC) See Rx Instructions .ROUTE .COMPLEX Qty: 30 3RF Dose Instruction: TAKE ONE TABLET BY MOUTH EVERY DAY Rx Instructions: TAKE ONE TABLET BY MOUTH EVERY DAY leflunomide 20 mg tablet See Rx Instructions .ROUTE .COMPLEX Qty: 90 1RF Dose Instruction: TAKE ONE TABLET BY MOUTH EVERY DAY Rx Instructions: TAKE ONE TABLET BY MOUTH EVERY DAY prednisone 5 mg tablet 5 mg PO DAILY PRN (Reason: joint pain flare) Qty: 30 0RF furosemide [Lasix] 20 mg tablet 20 mg PO DAILY Qty: 30 2RF (DME) cpap 1 See Rx Instructions .Route .MEDSUPPLY Qty: 1 0RF Rx Instructions: As directed cpap auto titrating 7-11 and all supplies. 99 months npi [id number] tramadol 50 mg tablet 50 mg PO TID Qty: 60 2RF Discharge Orders: Discharge ED (Routine); Ordered 01/31/23 Ordered By: Junior Browne Referrals: Geovanna Hughes FNP-C [Primary Care Provider] - 7-10 days Patient Instructions: Superficial Thrombophlebitis (ED) Activity Restrictions/Additional Instructions: Please use warm packs as needed and anti-inflammatories. Please follow-up with your family practice physician within the next 7 to 10 days for further evaluation and treatment. 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
[2023-01-31 17:16] VITALS: BP 166/89; PULSE 80; RESP 18; O2SAT 98
== END 2023-01-31 17:17 | disposition home or self-care (01) ==
PROVIDERS: Emergency Provider Emergency Medicine; PCP Nurse Practitioner Family
DX: I82.812 Embolism and thrombosis of superficial veins of left lower extremity (principal); Z79.82 Long term (current) use of aspirin; I83.813 Varicose veins of bilateral lower extremities with pain; M79.662 Pain in left lower leg; M79.89 Other specified soft tissue disorders
CPT/HCPCS: 93971; 99281

== ENCOUNTER → 2023-02-25 14:03 | Outpatient (BNVA) | payer MEDICARE, OTHER, SELFPAY | PROVIDERS: PCP Nurse Practitioner Family; Referring Provider Nurse Practitioner Family; Visit Provider Thoracic Surgery (Cardiothoracic Vascular Surgery) | DX: I83.813 Varicose veins of bilateral lower extremities with pain (principal) | CPT/HCPCS: 99203 ==

== ENCOUNTER 2023-03-07 09:07 | Outpatient (CLI) | payer MEDICARE, OTHER, SELFPAY ==
--- NOTE | 2023-03-07 09:30 | USCV_ITS ---
Tyler Suarez Age: 63 Gender: M : 1960 Exam Date: 03/07/2023 09:34 Ordering Phys: Gian Dumont MD (Andy) ([email or web address]) Technologist: CT [place] [facility] [place]: HISTORY: PROCEDURES: FINDINGS: Hypoechoic area in the right popliteal fossa, measuring 6.4 by 4.1 x 2.06 cm with echogenic linear structures in this area Significant venous reflux of greater than 500 ms 1000 ms were noted in the right common femoral, femoral and popliteal veins. Significant venous reflux of greater than 500 ms were noted in the distal and below-knee segment of the right greater saphenous vein. But the segments were found to be very superficial. On the left side Significant venous reflux of greater than 500 ms were noted at the saphenofemoral junction, distal to the saphenofemoral junction, proximal, mid, distal, below-knee and the below-knee segments of the greater saphenous vein. The greater saphenous vein distal to the saphenofemoral junction, proximal and the mid greater saphenous vein segments were found to be greater than 1 cm deep from the surface. The distal and below-knee segment of the greater saphenous vein was found to be very superficial. So also the small saphenous vein segments also were found to be very superficial. CONCLUSIONS 1. Significant venous reflux were noted at the common femoral, femoral and popliteal segments of the deep veins. 2. On the right side, the greater saphenous segments were found to have significant reflux of greater than 500 ms at the distal and below- knee segments. But this venous segments are found to be very superficial.-0.3 cm deep from the surface. 3. On the left side, significant venous reflux of greater than 500 ms were noted at the saphenofemoral junction, throughout the greater saphenous vein segments. But the distal and the below-knee segment of the greater saphenous vein was found to be very superficial.. The diameter of the venous segments were 0.76 and 0.73 cm respectively at the proximal and mid segments. The reflux time was 2.36 and 1.92 seconds respectively 4. No significant reflux were noted in the deep veins on the left side. 5. The small saphenous vein segments bilaterally were found to have no significant reflux of Dr Mami Hoff MD FAC (Electronically Signed) Final Date: 08 March 2023 15:25 S
== END 2023-03-07 09:08 | disposition home or self-care (01) ==
LOC: RAD 09:07
PROVIDERS: PCP Nurse Practitioner Family; Visit Provider Thoracic Surgery (Cardiothoracic Vascular Surgery)
DX: I83.813 Varicose veins of bilateral lower extremities with pain (principal); I87.2 Venous insufficiency (chronic) (peripheral)
CPT/HCPCS: 93970

== ENCOUNTER → 2023-04-10 09:09 | Outpatient (BNVA) | payer MEDICARE, OTHER, SELFPAY | PROVIDERS: PCP Nurse Practitioner Family; Visit Provider Thoracic Surgery (Cardiothoracic Vascular Surgery) | DX: I83.813 Varicose veins of bilateral lower extremities with pain (principal) | CPT/HCPCS: 99202 ==

== ENCOUNTER → 2023-04-21 14:43 | Outpatient (BNVA) | payer MEDICARE, OTHER, SELFPAY | PROVIDERS: PCP Nurse Practitioner Family; Visit Provider Podiatrist Foot & Ankle Surgery | DX: I73.9 Peripheral vascular disease, unspecified; L40.50 Arthropathic psoriasis, unspecified; Q66.71 Congenital pes cavus, right foot; Q66.72 Congenital pes cavus, left foot | CPT/HCPCS: 99203 ==

== ENCOUNTER 2023-04-30 06:00 | Outpatient (RCR) | payer MEDICARE, OTHER, SELFPAY | END 2023-05-15 23:59 | disposition home or self-care (01) | LOC: TPT 06:00 | PROVIDERS: PCP Nurse Practitioner Family; Visit Provider Nurse Practitioner Family | DX: M79.605 Pain in left leg (principal); M79.604 Pain in right leg | CPT/HCPCS: 97110; 97162 ==

== ENCOUNTER → 2023-05-12 08:33 | Outpatient (BNVA) | payer MEDICARE, OTHER, SELFPAY | PROVIDERS: PCP Nurse Practitioner Family; Visit Provider Podiatrist Foot & Ankle Surgery | DX: L40.50 Arthropathic psoriasis, unspecified (principal); I73.9 Peripheral vascular disease, unspecified; Q66.71 Congenital pes cavus, right foot; Q66.72 Congenital pes cavus, left foot | CPT/HCPCS: 99213 ==

== ENCOUNTER 2023-05-16 06:00 | Outpatient (RCR) | payer MEDICARE, OTHER, SELFPAY | END 2023-06-15 23:59 | disposition home or self-care (01) | LOC: TPT 06:00 | PROVIDERS: PCP Nurse Practitioner Family; Visit Provider Nurse Practitioner Family | DX: M79.604 Pain in right leg (principal); M79.605 Pain in left leg | CPT/HCPCS: 97110 ==

== ENCOUNTER → 2023-05-27 13:20 | Outpatient (BNVA) | payer MEDICARE, OTHER, SELFPAY | PROVIDERS: PCP Nurse Practitioner Family; Visit Provider Internal Medicine Rheumatology | DX: Z79.899 Other long term (current) drug therapy (principal); L40.50 Arthropathic psoriasis, unspecified; R06.02 Shortness of breath; Z11.59 Encounter for screening for other viral diseases; Z11.1 Encounter for screening for respiratory tuberculosis; M06.9 Rheumatoid arthritis, unspecified; Z71.89 Other specified counseling | CPT/HCPCS: 36415; 80076; 82565; 85025; 86140; 86480; 86704; 86803; 87340; 99214 ==

== ENCOUNTER 2023-06-03 11:31 | Emergency (ER) | payer MEDICARE, OTHER, SELFPAY ==
[2023-06-03] VITALS (8 sets, daily range): BP systolic 134–162; BP diastolic 71–89; PULSE 60–86; RESP 18; TEMP 36.6; O2SAT 94–99
--- NOTE | 2023-06-03 11:37 | ECG_ITS ---
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 Measurements Intervals [place] Rate: 63 P: 35 UT: 163 QRS: -2 QRSD: 108 T: 11 QT: 444 QTc: 457 Interpretive Statements SINUS RHYTHM INCOMPLETE RIGHT BUNDLE BRANCH BLOCK [90+ ms QRS DURATION, TERMINAL R IN V1/V2, 40+ ms S IN I/aVL/V4/V5/V6] Compared to ECG 10/23/2022 15:04:13 Incomplete right bundle-branch block now present Electronically Signed On 06-03-2023 21:30:58 CDT by Earl Joyce M.D. [email or web address]
--- NOTE | 2023-06-03 12:14 | PC.PHAR ---
pt states he takes care of his own medications-rx filled 05/28/23 90d/s leflunomide 20mg daily pt states his liver enzymes have been high states the dr told him to only take 10mg daily-pt states only taking the medications entered-pt states he had an inhaler that he hasnt used in 2-3 years
--- NOTE | 2023-06-03 12:15 | XR_ITS ---
WS: [id number] Portable AP upright chest, 06/03/2023 Clinical Data: dyspnea/cough Comparison: Two-view chest, 11/06/2022 Findings: No nodules, masses or effusions are seen. The heart is normal. The pulmonary vascularity is not increased. No pneumonia or pneumothorax is seen. The aortic arch is minimally tortuous. Impression: Atherosclerosis.
[2023-06-03 12:31] LABS: Basophils % 0.3 %; Eosinophils # 0.1 10^3/uL (0.0-0.8); Eosinophils % 2.2 %; Hematocrit 41.5 % (37-53); Lymphocytes % 15.3 %; Mean Corpuscular HGB Conc 33.7 g/dL (30-55); Mean Corpuscular Hemoglobin 31.4 pg (27-33); Mean Platelet Volume 11.1 fL (7.4-10.4); Monocytes # 0.4 10^3/uL (0.2-0.9); Monocytes % 5.7 %; Neutrophils # 4.95 10^3/uL (1.8-7.7); Neutrophils % 76.3 %; Nucleated Red Blood Cells % 0 %; Platelet Count 142 10^3/cmm (157-399); Red Blood Count 4.46 10^6/uL (3.85-5.65); White Blood Count 6.48 10^3/uL (3.29-11.43)
[2023-06-03 12:55] LABS: Alanine Aminotransferase 44 U/L (0-41); Alkaline Phosphatase 76 U/L (40-130); Anion Gap 14.9 (5-19); Aspartate Amino Transferase 24 U/L (0-40); Blood Urea Nitrogen 15 mg/dL (8-23); Calcium 8.5 mg/dL (8.5-10.5); Carbon Dioxide 22 mmol/L (22-29); Chloride 104 mmol/L (98-107); Globulin 2.2 g/dL (1.3-4.6); Glomerular Filtration Rate 84.7 mL/min (90-130); Glucose 118 mg/dL (65-115); Lipase 16 U/L (13-60); Magnesium 1.8 mg/dL (1.7-2.3); Osmolality Calculated 286 mOsm/kg (285-295); Potassium 3.9 mmol/L (3.5-5.1); Sodium 137 mmol/L (136-145); Total Bilirubin 0.3 mg/dL (0.15-1.2); Total Protein 6.2 g/dL (6.6-8.7)
[2023-06-03 13:16] LABS: Add Urine Microscopic? YES; Bilirubin Urine Neg (Negative); Blood Urine Neg (Negative); Glucose Urine UA Norm (Normal); Ketones Urine 2+ (Negative); Leukocyte Esterase Urine Trace (Negative); Nitrate Urine Negative (Negative); Protein Urine Neg (Negative); Urine Appearance Clear (CLEAR); Urine Color Yellow (Yellow); Urobilinogen Urine Norm (Negative); pH Urine 5 (5-7)
[2023-06-03 13:18] LABS: Bacteria Urine TRACE /hpf; Mucus Urine 1+ /hpf; RBC Urine RARE /hpf (0-2); Squamous Epithelial Cell Urine RARE /hpf (0-5); WBC Urine 0-4 /hpf (0-5)
[2023-06-03 13:19] LABS: Add Urine Culture? No; Amorphous Sediment Urine TRACE /hpf
--- NOTE | 2023-06-03 13:38 | W.ED.SYNCOPE ---
HPI - Syncope General: Chief Complaint: Syncope Stated Complaint: Syncope, Weakness, Dizzy Time Seen by Provider: 06/03/23 12:13 Source: patient Mode of arrival: ambulatory History of Present Illness: 63 yo male who present to the ER with complaints of near syncope after physical therapy. Patient had a similar episode of dizziness intermittently for the last couple of months this was much more intense. No associated chest pain or discomfort. No fever sweats chills or cough. Patient has noted when he first sits up he will frequently get the dizziness and when he lies down he does not notice it with particular movement of his head. He has not noticed any focal deficits or difficulty with gait. MD complaint: almost passed out Prodromal symptoms: lightheaded and vertigo Witnessed: No Associated symptoms: Deny abdominal pain, chest pain or fever(s) Treatments prior to arrival: none Review of Systems Const: Denies: fever(s) or chills Card: Denies: chest pain Resp: Denies: dyspnea GI: Denies: abdominal pain : Denies: dysuria, urinary frequency or urinary urgency Musc: Denies: neck pain or back pain Skin/Breast: Denies: rash PFSH ED PFSH: Medical History Synovial cyst of popliteal space [[place]], right knee Chronic steroid use High risk medication use NSAID long-term use Venous reflux Peripheral vascular disease Varicose veins of both lower extremities Chronic low back pain Obstructive sleep apnea Venous stasis ulcer Other specified disorders of synovium, left wrist Immunization counseling High risk medication use Psoriatic arthritis Surgical History No pertinent past surgical history Family History Other Cancer Hypertension Denies family history of Rheumatoid arthritis Lupus Social History Smoking and tobacco/nicotine status: never used tobacco/nicotine Alcohol intake: never Substance/Drug Use: never Adopted: No Caregiver/support person: Yes Lives independently: Yes Household members: spouse Housing: House Marital status: Current occupational status: employed Current gender identity: Male Physical Exam Const: GENERAL APPEARANCE: cooperative and comfortable ORIENTATION/CONSCIOUSNESS: Yes awake, Yes oriented to person, Yes oriented to place and Yes oriented to time HENMT: COMMON NORMALS: normocephalic, atraumatic and hearing grossly normal bilaterally HEAD & SCALP: normocephalic and atraumatic Resp: COMMON NORMALS: normal respiratory effort, No retractions, No use of accessory muscles and clear to auscultation bilaterally AUSCULTATION: clear to auscultation bilaterally Cardio: COMMON NORMALS: regular rate, regular rhythm and No murmurs present (Cardio) RATE: regular rate RHYTHM: regular rhythm GI: COMMON NORMALS: Soft to palpation and No hepatosplenomegaly present AUSCULTATION: Yes normoactive bowel sounds PALPATION: Yes Soft to palpation, No Tenderness to palpation present (GI), No Guarding due to palpation present (GI) and Yes No hepatosplenomegaly present Extremity: COMMON NORMALS: normal to inspection, capillary refill normal, no clubbing, cyanosis or edema, no calf tenderness and no pedal edema Neuro: SENSORIUM/ORIENTATION: Yes oriented to person, Yes oriented to place and Yes oriented to time Skin: COMMON NORMALS: no rashes or lesions noted GENERAL SKIN EXAM: no rashes or lesions noted Course Vital Signs: Vital signs: Vital Signs Temperature 97.8 F 06/03/23 11:32 Pulse Rate 64 06/03/23 17:27 Respiratory Rate 18 06/03/23 11:32 Blood Pressure 143/80 06/03/23 17:27 Pulse Oximetry 94 06/03/23 17:27 Oxygen Delivery Me thod Room Air 06/03/23 14:00 MDM - Syncope Medical Decision Making Orthostatics normal CT head unremarkable stroke score 0. He does have reproducible dizziness this has been going on for several months. Remainder of his labs reviewed. No significant findings. Will discharge patient on Ativan to use as needed and refer to ENT Medical Records I reviewed the patient's medical records. Lab Data I reviewed the patient's lab results. 06/03/23 11:45 06/03/23 11:45 Laboratory Results WBC 6.48 10^3/uL (3.29-11.43) 06/03/23 11:45 RBC 4.46 10^6/uL (3.85-5.65) 06/03/23 11:45 Hgb 14.00 g/dL (11.27-16.99) 06/03/23 11:45 Hct 41.5 % (37-53) 06/03/23 11:45 MCV 93.0 fl (82-101) 06/03/23 11:45 MCH 31.4 pg (27-33) 06/03/23 11:45 MCHC 33.7 g/dL (30-55) 06/03/23 11:45 RDW 13.0 % (12.1-15.1) 06/03/23 11:45 Plt Count 142 10^3/cmm (157-399) L 06/03/23 11:45 MPV 11.1 fL (7.4-10.4) H 06/03/23 11:45 Neut % (Auto) 76.3 % 06/03/23 11:45 Lymph % (Auto) 15.3 % 06/03/23 11:45 [place] % (Auto) 5.7 % 06/03/23 11:45 Eos % (Auto) 2.2 % 06/03/23 11:45 Baso % (Auto) 0.3 % 06/03/23 11:45 Neut # (Auto) 4.95 10^3/uL (1.8-7.7) 06/03/23 11:45 Lymph # (Auto) 1.0 10^3/uL (0.8-4.8) 06/03/23 11:45 [place] # (Auto) 0.4 10^3/uL (0.2-0.9) 06/03/23 11:45 Eos # (Auto) 0.1 10^3/uL (0.0-0.8) 06/03/23 11:45 Baso # (Auto) 0.0 10^3/uL (0.0-0.1) 06/03/23 11:45 Nucleated RBC % (auto) 0 % 06/03/23 11:45 Nucleated RBCs # 0.0 /100WBC 06/03/23 11:45 Sodium 137 mmol/L (136-145) 06/03/23 11:45 Potassium 3.9 mmol/L (3.5-5.1) 06/03/23 11:45 Chloride 104 mmol/L (98-107) 06/03/23 11:45 Carbon Dioxide 22 mmol/L (22-29) 06/03/23 11:45 Anion Gap 14.9 (5-19) 06/03/23 11:45 BUN 15 mg/dL (8-23) 06/03/23 11:45 Creatinine 0.9 mg/dL (0.7-1.2) 06/03/23 11:45 GFR Calculation 84.7 mL/min (90-130) L 06/03/23 11:45 Glucose 118 mg/dL (65-115) H 06/03/23 11:45 Calculated Osmolality 286 mOsm/kg (285-295) 06/03/23 11:45 Calcium 8.5 mg/dL (8.5-10.5) 06/03/23 11:45 Magnesium 1.8 mg/dL (1.7-2.3) 06/03/23 11:45 Total Bilirubin 0.3 mg/dL (0.15-1.2) 06/03/23 11:45 AST 24 U/L (0-40) 06/03/23 11:45 ALT 44 U/L (0-41) H 06/03/23 11:45 Alkaline Phosphatase 76 U/L (40-130) 06/03/23 11:45 Troponin T Baseline 7 ng/L (0-15) 06/03/23 11:45 Troponin T 120 Minute 10.55 ng/L (0-15) 06/03/23 13:25 Delta Troponin T 3.55 ABS# (0-10) 06/03/23 13:25 Total Protein 6.2 g/dL (6.6-8.7) L 06/03/23 11:45 Albumin 4.0 g/dL (3.5-5.2) 06/03/23 11:45 Globulin 2.2 g/dL (1.3-4.6) 06/03/23 11:45 Lipase 16 U/L (13-60) 06/03/23 11:45 Urine Color Yellow (Yellow) 06/03/23 12:51 Urine Appearance Clear (CLEAR) 06/03/23 12:51 Urine pH 5 (5-7) 06/03/23 12:51 Ur Specific [place] 1.020 (1.005-1.030) 06/03/23 12:51 Urine Protein Neg (Negative) 06/03/23 12:51 Urine Glucose (UA) Norm (Normal) 06/03/23 12:51 Urine Ketones 2+ (Negative) H 06/03/23 12:51 Urine Blood Neg (Negative) 06/03/23 12:51 Urine Nitrate Negative (Negative) 06/03/23 12:51 Urine Bilirubin Neg (Negative) 06/03/23 12:51 Urine Urobilinogen Norm mg/dL (Negative) 06/03/23 12:51 Ur Leukocyte Esterase Trace (Negative) H 06/03/23 12:51 Urine RBC Rare /hpf (0-2) 06/03/23 12:51 Urine WBC 0-4 /hpf (0-5) H 06/03/23 12:51 Ur Squamous Epith Cells Rare /hpf (0-5) 06/03/23 12:51 Amorphous Sediment Trace /hpf 06/03/23 12:51 Urine Bacteria Trace /hpf (NONE) 06/03/23 12:51 Urine Mucus 1+ /hpf 06/03/23 12:51 All radiology interpretation(s) finalized by discharge Discharge Plan Discharge Patient Disposition: Home Clinical Impression: Vertigo Condition: Stable Prescriptions: New Ativan 2 mg tablet 2 mg PO Q6H PRN (Reason: dizziness) Qty: 14 0RF No Action multivitamin [Multiple Vitamins] Tablet 1 tab PO QAM aspirin [Adult Low Dose Aspirin] 81 mg tablet,delayed release (DR/EC) 81 mg PO QAM (DME) SOLE SUPPORTS See Rx Instructions .Route .MEDSUPPLY Qty: 1 0RF Rx Instructions: As directed prednisone 5 mg tablet 5 mg PO DAILY PRN (Reason: joint pain flare) Qty: 30 0RF isosorbide mononitrate 30 mg tablet extended release 24 hr 30 mg PO QAM clopidogrel 75 mg tablet 75 mg PO QAM rosuvastatin 40 mg tablet 40 mg PO BEDTIME tramadol 50 mg tablet 50 mg PO TID PRN (Reason: take for moderate to severe pain PRN) (DME) cpap 1 See Rx Instructions .Route .MEDSUPPLY Qty: 1 0RF Rx Instructions: As directed cpap auto titrating 7-11 and all supplies. 99 months npi [id number] Fish Oil Concentrate 1,000 mg Capsule 1,000 mg PO QAM metoprolol succinate 25 mg tablet extended release 24 hr 25 mg PO QAM leflunomide 20 mg tablet 10 mg PO QAM pantoprazole 40 mg tablet,delayed release (DR/EC) 40 mg PO QAM Discharge Orders: Discharge ED (Routine); Ordered 06/03/23 Ordered By: Jd Nascimento Referrals: Geovanna Hughes FNP-C [Primary Care Provider] - Discharge Diet: Usual diet Discharge Activity: Increase activity as tolerated Patient Instructions: Opioid Safety, Pain Management Activity Restrictions/Additional Instructions: Thank you for choosing [facility] for your healthcare needs today. Please realize this is an emergency room and that we are providing you with a medical screening exam and this may not be complete and all inclusive of all the testing and or work up that you may need to determine your ailment or severity of your illness. It is very important that you follow up as instructed or that you return to the Emergency Department should you have concerns or if your condition changes or worsens in any way. You were seen today for vertiginous-like symptoms been going been going on for last several months. There is no sign of stroke at this time. Head CT was unremarkable. Recommend to use Ativan 2 mg every 6 hours as needed please be aware the Ativan will make you sleepy. anatomic pathology manager will make arrangements for you to follow-up with ENT for further evaluation. Coding Level of Care Code ED [employer] for Laury Beltre NIH stroke score NIHSS Level Of Consciousness - 1a: 0 Level Of Consciousness Questions - 1b: Both Correct Level Of Consciousness Commands - 1c: Both Correct Best Gaze - 2: Normal Visual Pagan - 3: No Visual Loss Facial Palsy - 4: Normal Motor Arm Right - 5: No Drift Motor Arm Left - 5: No Drift Motor Leg Right - 6: No Drift Motor Leg Left - 6: No Drift Limb Ataxia - 7: Absent Sensory - 8: Normal Best Language - 9: No Aphasia Dysarthia - 10: Normal Extinction And Inattention - 11: 0 Score Total Score: 0
--- NOTE | 2023-06-03 13:57 | CT_ITS ---
WS: [id number] CT HEAD TECHNIQUE: Noncontrast CT of the head obtained from the skullbase to the vertex. CLINICAL INFORMATION: dizziness/AMS/ n/v COMPARISON: None. DLP: 1160.[address] scans at [facility] use at least one of these dose optimization techniques: automated e xposure control; mA and/or kV adjustment per patient size (includes targeted exams where dose is matc hed to clinical indication); or iterative reconstruction. FINDINGS: No evidence of intracranial hemorrhage or mass effect. Ventricular system and basal cisterns are [place] nt. Mild small vessel changes with mild parenchymal volume loss. No extra-axial fluid collections. No evidence of mass or mass effect. Intracranial vascular calcification. Incidental taisha cisterna magna . Mild mucosal thickening in the ethmoid air cells. Mastoid air cells are well aerated. IMPRESSION: 1. No evidence of intracranial hemorrhage or mass effect. 2. No acute intracranial findings.
[2023-06-03] MEDS: ondansetron 2 mg/ML SDV 2 mL 4 MG IVP (14:02)
[2023-06-03 14:24] LABS: Troponin(5th) Baseline 7 ng/L (0-15)
[2023-06-03 15:17] LABS: Troponin 5 2HR 10.55 ng/L (0-15); Troponin 5 2HR Delta 3.55 ABS# (0-10)
--- NOTE | 2023-06-05 07:50 | DCPLANNER ---
A message was sent to ENT on 06/05/23 at 0751. Clinic to contact patient for appointment
== END 2023-06-03 17:28 | disposition home or self-care (01) ==
PROVIDERS: Emergency Provider Family Medicine; PCP Nurse Practitioner Family
DX: R42 Dizziness and giddiness (principal); Z79.82 Long term (current) use of aspirin
CPT/HCPCS: 36415; 70450; 71045; 80053; 81001; 83690; 83735; 84484; 85025; 93005; 96374; 99285; J2405

== ENCOUNTER 2023-06-05 13:50 | Outpatient (CLI) | payer MEDICARE, OTHER, SELFPAY | END 2023-06-05 13:51 | disposition home or self-care (01) | PROVIDERS: PCP Nurse Practitioner Family; Visit Provider Internal Medicine Rheumatology | DX: R06.02 Shortness of breath (principal) | CPT/HCPCS: 94010; 94726; 94729 ==

== ENCOUNTER 2023-06-12 08:19 | Outpatient (CLI) | payer MEDICARE, OTHER, SELFPAY ==
--- NOTE | 2023-06-12 08:30 | CT_ITS ---
WS: [id number] CT chest wo con 14030 HISTORY: R06.02 - Shortness of breath TECHNIQUE: Axial imaging performed through the thorax. Coronal and sagittal reformats are submitted. All CT scans at [facility] use at least one of these dose optimization techniques: automated exposure control; mA and/or kV adjustment per patient size (includes targeted exams where dose is mat ched to clinical indication); or iterative reconstruction. CONTRAST: None DLP: 638.85 mGy.cm COMPARISON: 02/22/2015 Lungs and central airway: Mild pulmonary hyperexpansion. Stable micronodule RIGHT apex. Additional st able 5 mm nodule LEFT lower lobe. No suspicious masses and no pneumonia. Pleura: Normal. No pleural effusion. Heart and pericardium: Normal size heart with no pericardial effusion. Mediastinum and graciela: No mediastinum or hilar adenopathy. Vessels: Pulmonary artery is just very slightly larger than the aorta. Coronary artery stent in the LEFT anterior descending. Chest wall and lower neck: No soft tissue masses. Upper abdomen: Hepatic cysts. Splenic granulomata. No adrenal mass. Osseous structures: No destructive process. IMPRESSION: 1. No suspicious masses or pulmonary nodules. No pneumonia. 2. No mediastinal or hilar adenopathy. 3. Hepatic cysts. 4. Coronary artery stent, LAD.
== END 2023-06-12 08:20 | disposition home or self-care (01) ==
LOC: RAD 08:20
PROVIDERS: PCP Nurse Practitioner Family; Visit Provider Internal Medicine Rheumatology
DX: R06.02 Shortness of breath (principal); Z95.5 Presence of coronary angioplasty implant and graft
CPT/HCPCS: 71250

== ENCOUNTER 2023-06-12 09:25 | Oncology outpatient (recurring) (ONCR) | payer MEDICARE, OTHER, SELFPAY ==
[2023-06-12] VITALS (7 sets, daily range): BP systolic 148–165; BP diastolic 73–85; PULSE 65–77; RESP 16; TEMP 35.8–36.3; O2SAT 94–98
[2023-06-12] MEDS: sodium chloride 0.9% 250 ML 75 ML IV (11:39)
[2023-06-12] MEDS: acetaminophen 325 mg Tablet 650 MG PO (11:42)
[2023-06-12] MEDS: diphenhydrAMINE 50 mg/mL SDV 1mL 25 MG IVP (11:44)
[2023-06-12] MEDS: methylPREDNISolone sod succ 40 mg/mL INJ IVP (11:46)
[2023-06-12] MEDS: SODIUM CHLORIDE 0.9% IV (12:30)
[2023-06-12] MEDS: INFLIXIMAB ABDA IV (12:30)
== END 2023-06-15 23:59 | disposition home or self-care (01) ==
PROVIDERS: PCP Nurse Practitioner Family; Visit Provider Internal Medicine Rheumatology
DX: L40.50 Arthropathic psoriasis, unspecified (principal)
CPT/HCPCS: 96375; 96413; 96415; A4222; J1200; J2920; J7050; Q5104

== ENCOUNTER 2023-06-12 09:32 | Outpatient (CLI) | payer MEDICARE, OTHER, SELFPAY | END 2023-06-12 09:33 | disposition home or self-care (01) | LOC: SPT 09:33 | PROVIDERS: PCP Nurse Practitioner Family; Visit Provider Podiatrist Foot & Ankle Surgery | DX: Z46.89 Encounter for fitting and adjustment of other specified devices (principal); L40.50 Arthropathic psoriasis, unspecified; I73.9 Peripheral vascular disease, unspecified; M20.41 Other hammer toe(s) (acquired), right foot; M20.42 Other hammer toe(s) (acquired), left foot | CPT/HCPCS: 97760; L3030 ==

== ENCOUNTER → 2023-07-03 09:13 | Outpatient (BNVA) | payer MEDICARE, OTHER, SELFPAY | PROVIDERS: PCP Nurse Practitioner Family; Visit Provider Internal Medicine Rheumatology | DX: Z79.899 Other long term (current) drug therapy (principal); R79.89 Other specified abnormal findings of blood chemistry | CPT/HCPCS: 80076 ==

== ENCOUNTER 2023-10-02 07:54 | Oncology outpatient (recurring) (ONCR) | payer MEDICARE, OTHER, SELFPAY ==
[2023-10-02] VITALS (8 sets, daily range): BP systolic 129–148; BP diastolic 73–84; PULSE 60–66; RESP 16; TEMP 35.9–36.3; O2SAT 92–95
[2023-10-02] MEDS: methylPREDNISolone sod succ 40 mg/mL INJ IVP (09:17)
[2023-10-02] MEDS: sodium chloride 0.9% 250 ML 75 ML IV (09:17)
[2023-10-02] MEDS: acetaminophen 325 mg Tablet 650 MG PO (09:18)
[2023-10-02] MEDS: diphenhydrAMINE 50 mg/mL SDV 1mL 25 MG IVP (09:24)
[2023-10-02] MEDS: infliximab-abda 600 MG in sodium chloride 0.9% 250 ML 10 MG IV (09:54)
== END 2023-10-15 23:59 | disposition home or self-care (01) ==
PROVIDERS: PCP Nurse Practitioner Family; Visit Provider Internal Medicine Rheumatology
DX: L40.50 Arthropathic psoriasis, unspecified (principal); Z79.899 Other long term (current) drug therapy
CPT/HCPCS: 96375; 96413; 96415; A4222; J1200; J2919; J7050; Q5104

== ENCOUNTER → 2023-10-28 13:53 | Outpatient (BNVA) | payer MEDICARE, OTHER, SELFPAY | PROVIDERS: PCP Nurse Practitioner Family; Visit Provider Internal Medicine Rheumatology | DX: M06.9 Rheumatoid arthritis, unspecified (principal); L40.50 Arthropathic psoriasis, unspecified; Z79.899 Other long term (current) drug therapy; Z71.85 Encounter for immunization safety counseling | CPT/HCPCS: 99214 ==

== ENCOUNTER 2023-11-13 08:30 | Oncology outpatient (recurring) (ONCR) | payer MEDICARE, OTHER, SELFPAY ==
[2023-10-16] VITALS (7 sets, daily range): BP systolic 134–151; BP diastolic 73–88; PULSE 54–61; RESP 16–18; TEMP 36.1–36.4; O2SAT 96–97
[2023-10-16] MEDS: sodium chloride 0.9% 250 ML 75 ML IV (08:47)
[2023-10-16] MEDS: acetaminophen 325 mg Tablet 650 MG PO (08:47)
[2023-10-16] MEDS: methylPREDNISolone sod succ 40 mg/mL INJ IVP (08:47)
[2023-10-16 08:50] LABS: Basophils % 0.5 %; Eosinophils # 0.2 10^3/uL (0.0-0.8); Eosinophils % 5.1 %; Hematocrit 42.8 % (37-53); Lymphocytes # 1.6 10^3/uL (0.8-4.8); Mean Corpuscular HGB Conc 34.3 g/dL (30-55); Mean Corpuscular Hemoglobin 32.3 pg (27-33); Mean Corpuscular Volume 94.1 fl (82-101); Mean Platelet Volume 10.6 fL (7.4-10.4); Monocytes # 0.5 10^3/uL (0.2-0.9); Neutrophils # 1.77 10^3/uL (1.8-7.7); Neutrophils % 43.2 %; Nucleated Red Blood Cells % 0 %; Platelet Count 145 10^3/cmm (157-399); Red Blood Count 4.55 10^6/uL (3.85-5.65); Red Cell Distribution Width 13.1 % (12.1-15.1)
[2023-10-16] MEDS: diphenhydrAMINE 50 mg/mL SDV 1mL 25 MG IVP (08:51)
[2023-10-16] MEDS: infliximab-abda 600 MG in sodium chloride 0.9% 250 ML 10 MG IV (09:07)
[2023-10-16 09:09] LABS: Alanine Aminotransferase 50 U/L (0-41); Albumin Level 4.4 g/dL (3.5-5.2); Alkaline Phosphatase 82 U/L (40-130); Aspartate Amino Transferase 30 U/L (0-40); Globulin 3.3 g/dL (1.3-4.6); Glomerular Filtration Rate 84.7 mL/min (90-130); Total Bilirubin 0.6 mg/dL (0.15-1.2); Total Protein 7.7 g/dL (6.6-8.7)
[2023-11-13] VITALS (8 sets, daily range): BP systolic 119–147; BP diastolic 72–80; PULSE 53–66; RESP 16–17; TEMP 36–36.6; O2SAT 94–98
[2023-11-13] MEDS: acetaminophen 325 mg Tablet 650 MG PO (08:20)
[2023-11-13] MEDS: methylPREDNISolone sod succ 40 mg/mL INJ IVP (08:20)
[2023-11-13] MEDS: sodium chloride 0.9% 250 ML 75 ML IV (08:22)
[2023-11-13] MEDS: diphenhydrAMINE 50 mg/mL SDV 1mL 25 MG IVP (08:24)
[2023-11-13] MEDS: infliximab-abda 600 MG in sodium chloride 0.9% 250 ML 10 MG IV (09:08)
== END 2023-11-13 23:59 | disposition home or self-care (01) ==
PROVIDERS: PCP Nurse Practitioner Family; Visit Provider Internal Medicine Rheumatology
DX: Z53.9 Procedure and treatment not carried out, unspecified reason; L40.50 Arthropathic psoriasis, unspecified; Z79.899 Other long term (current) drug therapy
CPT/HCPCS: 80076; 82565; 85025; 86140; 96375; 96413; 96415; A4222; J1200; J2919; J7050; Q5104

== ENCOUNTER 2024-01-15 07:51 | Oncology outpatient (recurring) (ONCR) | payer MEDICARE, OTHER, SELFPAY ==
[2024-01-15 08:46] VITALS: BP 156/81; PULSE 60; RESP 16; TEMP 36.3; O2SAT 96
[2024-01-15] MEDS: methylPREDNISolone sod succ 40 mg/mL INJ IVP (08:51)
[2024-01-15] MEDS: diphenhydrAMINE 50 mg/mL SDV 1mL 25 MG IVP (08:54)
[2024-01-15 08:58] LABS: Basophils % 0.4 %; Eosinophils # 0.2 10^3/uL (0.0-0.8); Eosinophils % 3.1 %; Hematocrit 41.6 % (37-53); Lymphocytes # 1.5 10^3/uL (0.8-4.8); Lymphocytes % 28.7 %; Mean Corpuscular HGB Conc 34.6 g/dL (30-55); Mean Corpuscular Hemoglobin 32.5 pg (27-33); Mean Corpuscular Volume 93.9 fl (82-101); Mean Platelet Volume 10.4 fL (7.4-10.4); Monocytes # 0.5 10^3/uL (0.2-0.9); Monocytes % 9.4 %; Neutrophils # 3.03 10^3/uL (1.8-7.7); Neutrophils % 58.2 %; Nucleated Red Blood Cells % 0 %; Platelet Count 154 10^3/cmm (157-399); Red Blood Count 4.43 10^6/uL (3.85-5.65)
[2024-01-15] MEDS: acetaminophen 325 mg Tablet 650 MG PO (09:01)
[2024-01-15 09:26] LABS: Alanine Aminotransferase 40 U/L (0-41); Albumin Level 4.1 g/dL (3.5-5.2); Alkaline Phosphatase 73 U/L (40-130); Aspartate Amino Transferase 23 U/L (0-40); Creatinine Clr Calc Pharmacy 130.7969; Globulin 2.8 g/dL (1.3-4.6); Total Bilirubin 0.5 mg/dL (0.15-1.2); Total Protein 6.9 g/dL (6.6-8.7)
[2024-01-15] MEDS: infliximab-abda 600 MG in sodium chloride 0.9% 250 ML 10 MG IV (09:31)
[2024-01-15 09:50] VITALS: BP 123/73; PULSE 53; RESP 16; TEMP 36.2; O2SAT 95
[2024-01-15 10:07] VITALS: BP 122/64; PULSE 53; RESP 16; TEMP 35.8; O2SAT 94
[2024-01-15 10:24] VITALS: BP 110/72; PULSE 55; RESP 16; TEMP 36.1; O2SAT 96
[2024-01-15 10:40] VITALS: BP 124/70; PULSE 53; RESP 16; TEMP 36.1; O2SAT 95
[2024-01-15 11:45] VITALS: BP 146/74; PULSE 57; RESP 16; TEMP 35.9; O2SAT 96
== END 2024-01-15 23:59 | disposition home or self-care (01) ==
PROVIDERS: PCP Nurse Practitioner Family; Visit Provider Internal Medicine Rheumatology
DX: L40.50 Arthropathic psoriasis, unspecified (principal); Z79.899 Other long term (current) drug therapy
CPT/HCPCS: 80076; 82565; 85025; 86140; 96375; 96413; 96415; A4222; J1200; J2919; J7050; Q5104

== ENCOUNTER 2024-02-26 07:48 | Oncology outpatient (recurring) (ONCR) | payer MEDICARE, OTHER, SELFPAY ==
[2024-02-26 08:38] LABS: Basophils % 0.2 %; Eosinophils # 0.2 10^3/uL (0.0-0.8); Eosinophils % 3.1 %; Hematocrit 47.3 % (37-53); Lymphocytes # 1.4 10^3/uL (0.8-4.8); Lymphocytes % 28.2 %; Mean Corpuscular HGB Conc 33.2 g/dL (30-55); Mean Corpuscular Hemoglobin 32.1 pg (27-33); Mean Corpuscular Volume 96.7 fl (82-101); Mean Platelet Volume 10.9 fL (7.4-10.4); Monocytes # 0.4 10^3/uL (0.2-0.9); Monocytes % 8.9 %; Neutrophils # 2.87 10^3/uL (1.8-7.7); Neutrophils % 59.4 %; Nucleated Red Blood Cells % 0 %; Platelet Count 163 10^3/cmm (157-399); Red Blood Count 4.89 10^6/uL (3.85-5.65); White Blood Count 4.83 10^3/uL (3.29-11.43)
[2024-02-26 08:40] VITALS: BP 142/74; PULSE 74; RESP 18; TEMP 36.4; O2SAT 96
[2024-02-26] MEDS: acetaminophen 325 mg Tablet 650 MG PO (08:45)
[2024-02-26] MEDS: sodium chloride 0.9% 250 ML 75 ML IV (08:46)
[2024-02-26] MEDS: diphenhydrAMINE 50 mg/mL SDV 1mL 25 MG IVP (08:48)
[2024-02-26 08:55] LABS: Alanine Aminotransferase 35 U/L (0-41); Albumin Level 4.6 g/dL (3.5-5.2); Alkaline Phosphatase 82 U/L (40-130); Aspartate Amino Transferase 28 U/L (0-40); Blood Urea Nitrogen 25 mg/dL (8-23); Calcium 9.6 mg/dL (8.5-10.5); Carbon Dioxide 25 mmol/L (22-29); Chloride 100 mmol/L (98-107); Globulin 3.6 g/dL (1.3-4.6); Glomerular Filtration Rate 84.4 mL/min (90-130); Glucose 111 mg/dL (65-115); Osmolality Calculated 289 mOsm/kg (285-295); Sodium 137 mmol/L (136-145); Total Bilirubin 0.6 mg/dL (0.15-1.2); Total Protein 8.2 g/dL (6.6-8.7)
[2024-02-26] MEDS: methylPREDNISolone sod succ 40 mg/mL INJ IVP (08:56)
[2024-02-26 08:57] LABS: Anion Gap 16.6 (5-19); Potassium 4.6 mmol/L (3.5-5.1)
[2024-02-26] MEDS: infliximab-abda 600 MG in sodium chloride 0.9% 250 ML 325 MG IV (09:42)
[2024-02-26 10:52] VITALS: BP 153/81; PULSE 62; RESP 18; TEMP 36.6; O2SAT 95
== END 2024-03-16 23:59 | disposition home or self-care (01) ==
PROVIDERS: PCP Nurse Practitioner Family; Visit Provider Internal Medicine Rheumatology
DX: L40.50 Arthropathic psoriasis, unspecified (principal); Z79.899 Other long term (current) drug therapy
CPT/HCPCS: 80053; 85025; 86140; 96375; 96413; A4222; J1200; J2919; J7050; Q5104

== ENCOUNTER → 2024-03-02 14:35 | Outpatient (BNVA) | payer MEDICARE, OTHER, SELFPAY | PROVIDERS: PCP Nurse Practitioner Family; Visit Provider Internal Medicine Rheumatology | DX: L40.50 Arthropathic psoriasis, unspecified (principal); M54.9 Dorsalgia, unspecified; M06.9 Rheumatoid arthritis, unspecified; Z79.899 Other long term (current) drug therapy; Z71.89 Other specified counseling | CPT/HCPCS: 72072; 99214 ==

== ENCOUNTER 2024-04-08 07:39 | Oncology outpatient (recurring) (ONCR) | payer MEDICARE, OTHER, SELFPAY ==
[2024-04-08 08:07] VITALS: BP 167/85; PULSE 71; RESP 16; TEMP 36.9; O2SAT 96
[2024-04-08] MEDS: sodium chloride 0.9% 250 ML 75 ML IV (08:46)
[2024-04-08] MEDS: acetaminophen 325 mg Tablet 650 MG PO (08:49)
[2024-04-08] MEDS: diphenhydrAMINE 50 mg/mL SDV 1mL 25 MG IVP (08:51)
[2024-04-08] MEDS: methylPREDNISolone sod succ 40 mg/mL INJ IVP (08:54)
[2024-04-08] MEDS: INFLIXIMAB ABDA IV (09:30)
[2024-04-08] MEDS: SODIUM CHLORIDE 0.9% IV (09:30)
[2024-04-08 10:53] VITALS: BP 150/87; PULSE 96; RESP 16; TEMP 36.4; O2SAT 97
== END 2024-04-16 23:59 | disposition home or self-care (01) ==
PROVIDERS: PCP Nurse Practitioner Family; Visit Provider Internal Medicine Rheumatology
DX: L40.50 Arthropathic psoriasis, unspecified (principal); Z79.899 Other long term (current) drug therapy
CPT/HCPCS: 96413; 96415; A4222; J1200; J2919; J7050; Q5104

== ENCOUNTER 2024-05-20 07:35 | Oncology outpatient (recurring) (ONCR) | payer MEDICARE, OTHER, SELFPAY ==
[2024-05-20 07:45] VITALS: BP 152/88; PULSE 60; RESP 18; TEMP 36.3; O2SAT 96
[2024-05-20 08:20] LABS: Basophils % 0.3 %; Eosinophils # 0.1 10^3/uL (0.0-0.8); Hematocrit 44.1 % (37-53); Lymphocytes # 1.5 10^3/uL (0.8-4.8); Lymphocytes % 25.8 %; Mean Corpuscular HGB Conc 34.5 g/dL (30-55); Mean Corpuscular Hemoglobin 32.3 pg (27-33); Mean Corpuscular Volume 93.6 fl (82-101); Mean Platelet Volume 11.1 fL (7.4-10.4); Monocytes # 0.5 10^3/uL (0.2-0.9); Monocytes % 8.7 %; Neutrophils # 3.76 10^3/uL (1.8-7.7); Nucleated Red Blood Cells % 0 %; Platelet Count 163 10^3/cmm (157-399); Red Blood Count 4.71 10^6/uL (3.85-5.65); Red Cell Distribution Width 12.6 % (12.1-15.1); White Blood Count 5.97 10^3/uL (3.29-11.43)
[2024-05-20] MEDS: acetaminophen 325 mg Tablet 650 MG PO (08:23)
[2024-05-20] MEDS: methylPREDNISolone sod succ 40 mg/mL INJ IVP (08:24)
[2024-05-20] MEDS: diphenhydrAMINE 50 mg/mL SDV 1mL 25 MG IVP (08:24)
[2024-05-20] MEDS: sodium chloride 0.9% 250 ML 75 ML IV (08:40)
[2024-05-20] MEDS: infliximab-abda 600 MG in sodium chloride 0.9% 250 ML 325 MG IV (09:04)
[2024-05-20 10:15] VITALS: BP 154/87; PULSE 78; RESP 17; TEMP 36.6; O2SAT 99
[2024-05-20 10:25] LABS: Alanine Aminotransferase 46 U/L (0-41); Albumin Level 4.6 g/dL (3.5-5.2); Alkaline Phosphatase 83 U/L (40-130); Aspartate Amino Transferase 26 U/L (0-40); Globulin 3.2 g/dL (1.3-4.6); Glomerular Filtration Rate 112.8 mL/min (90-130); Total Bilirubin 0.4 mg/dL (0.15-1.2); Total Protein 7.8 g/dL (6.6-8.7)
== END 2024-06-14 23:59 | disposition home or self-care (01) ==
PROVIDERS: PCP Nurse Practitioner Family; Visit Provider Internal Medicine Rheumatology
DX: L40.50 Arthropathic psoriasis, unspecified (principal); Z79.899 Other long term (current) drug therapy
CPT/HCPCS: 80076; 82565; 85025; 86140; 96375; 96413; A4222; J1200; J2919; J7050; J9999; Q5104

== ENCOUNTER 2024-07-01 07:49 | Oncology outpatient (recurring) (ONCR) | payer MEDICARE, OTHER, SELFPAY ==
[2024-07-01] MEDS: sodium chloride 0.9% 250 ML 75 ML IV (08:30)
[2024-07-01] MEDS: acetaminophen 325 mg Tablet 650 MG PO (08:32)
[2024-07-01] MEDS: diphenhydrAMINE 50 mg/mL SDV 1mL 25 MG IVP (08:34)
[2024-07-01] MEDS: methylPREDNISolone sod succ 40 mg/mL INJ IVP (08:37)
[2024-07-01] MEDS: infliximab-abda 1,000 MG in sodium chloride 0.9% 150 ML 250 MG IV (09:14)
[2024-07-01 10:49] VITALS: BP 160/88; PULSE 60; TEMP 36.4
== END 2024-07-14 23:59 | disposition home or self-care (01) ==
PROVIDERS: PCP Nurse Practitioner Family; Visit Provider Internal Medicine Rheumatology
DX: L40.50 Arthropathic psoriasis, unspecified (principal); Z79.899 Other long term (current) drug therapy
CPT/HCPCS: 96375; 96413; A4222; J1200; J2919; J7050; J9999; Q5104

== ENCOUNTER 2024-08-12 07:55 | Oncology outpatient (recurring) (ONCR) | payer MEDICARE, OTHER, SELFPAY ==
[2024-08-12 08:41] LABS: Basophils % 0.3 %; Eosinophils # 0.1 10^3/uL (0.0-0.8); Eosinophils % 1.9 %; Hematocrit 43.6 % (37-53); Lymphocytes # 1.7 10^3/uL (0.8-4.8); Mean Corpuscular HGB Conc 33.3 g/dL (30-55); Mean Corpuscular Hemoglobin 31.7 pg (27-33); Mean Corpuscular Volume 95.2 fl (82-101); Mean Platelet Volume 10.7 fL (7.4-10.4); Monocytes # 0.6 10^3/uL (0.2-0.9); Monocytes % 10.8 %; Neutrophils # 3.25 10^3/uL (1.8-7.7); Neutrophils % 56.8 %; Nucleated Red Blood Cells % 0 %; Platelet Count 149 10^3/cmm (157-399); Red Blood Count 4.58 10^6/uL (3.85-5.65); Red Cell Distribution Width 12.7 % (12.1-15.1); White Blood Count 5.73 10^3/uL (3.29-11.43)
[2024-08-12] MEDS: acetaminophen 325 mg Tablet 650 MG PO (08:54)
[2024-08-12] MEDS: sodium chloride 0.9% 250 ML 75 ML IV (08:55)
[2024-08-12] MEDS: methylPREDNISolone sod succ 40 mg/mL INJ IVP (08:55)
[2024-08-12] MEDS: diphenhydrAMINE 50 mg/mL SDV 1mL 25 MG IVP (08:56)
[2024-08-12 08:57] LABS: Alanine Aminotransferase 39 U/L (0-41); Albumin Level 4.2 g/dL (3.5-5.2); Alkaline Phosphatase 71 U/L (40-130); Aspartate Amino Transferase 24 U/L (0-40); Creatinine Clr Calc Pharmacy 117.4074; Globulin 3.3 g/dL (1.3-4.6); Glomerular Filtration Rate 84.4 mL/min (90-130); Total Bilirubin 0.5 mg/dL (0.15-1.2); Total Protein 7.5 g/dL (6.6-8.7)
[2024-08-12] MEDS: infliximab-abda 1,000 MG in sodium chloride 0.9% 150 ML 250 MG IV (09:22)
[2024-08-12 16:43] VITALS: BP 156/84; PULSE 76; RESP 16; TEMP 36.5; O2SAT 96
== END 2024-08-14 23:59 | disposition home or self-care (01) ==
PROVIDERS: PCP Nurse Practitioner Family; Visit Provider Internal Medicine Rheumatology
DX: L40.50 Arthropathic psoriasis, unspecified (principal); M06.9 Rheumatoid arthritis, unspecified; Z79.899 Other long term (current) drug therapy; Z71.89 Other specified counseling; Z79.52 Long term (current) use of systemic steroids
CPT/HCPCS: 80076; 82565; 85025; 86140; 96365; 96375; 99214; A4222; J1200; J2919; J7050; J9999; Q5104

== ENCOUNTER 2024-08-18 14:30 | Oncology outpatient (recurring) (ONCR) | payer MEDICARE, OTHER, SELFPAY ==
--- NOTE | 2024-08-18 15:30 | XR_ITS ---
WS: [id number] SCREENING DEXA SCAN [employer] CLINICAL INFORMATION: M81.0 - Age-related osteoporosis without current patholog... COMPARISON: None. FINDINGS: The L1-L4 bone mineral density measures 1.377 g/cm2. This corresponds to a T score score of 1.3 and Z score of 1.0. Left femoral neck bone mineral density measures 1.191 g/cm2. This corresponds to a T score of 0.6 and Z score of 0.8. Right femoral neck bone mineral density measures 1.199 g/cm2. This corresponds to a T score 0.7of and Z score of 0.8. Mean femoral neck bone mineral density measures 1.195 g/cm2. This corresponds to a T score of 0.7 and Z score of 0.8. XR/XR DEXA axial skeleton* [id number] IMPRESSION: Normal bone mineralization. Patient's FRAX calculated 10 year probability for major osteoporotic fracture i s 14.9% and osteoporotic hip fracture is 0.7%.
== END 2024-09-13 23:59 | disposition home or self-care (01) ==
LOC: ONCMED 14:31
PROVIDERS: PCP Nurse Practitioner Family; Visit Provider Internal Medicine Rheumatology
DX: M81.0 Age-related osteoporosis without current pathological fracture (principal)
CPT/HCPCS: 77080

== ENCOUNTER 2024-09-23 07:38 | Oncology outpatient (recurring) (ONCR) | payer MEDICARE, OTHER, SELFPAY ==
[2024-09-23 08:38] LABS: Hematocrit 44.0 % (37-53); Hemoglobin 15.20 g/dL (11.27-16.99); Mean Corpuscular HGB Conc 34.5 g/dL (30-55); Mean Corpuscular Hemoglobin 32.5 pg (27-33); Mean Corpuscular Volume 94.2 fl (82-101); Nucleated Red Blood Cells % 0 %; Platelet Count 163 10^3/cmm (157-399); Red Blood Count 4.67 10^6/uL (3.85-5.65); White Blood Count 5.43 10^3/uL (3.29-11.43)
[2024-09-23 08:48] LABS: Alanine Aminotransferase 26 U/L (0-41); Albumin Level 4.2 g/dL (3.5-5.2); Alkaline Phosphatase 68 U/L (40-130); Aspartate Amino Transferase 20 U/L (0-40); Creatinine Clr Calc Pharmacy 118.4434; Globulin 3.3 g/dL (1.3-4.6); Total Protein 7.5 g/dL (6.6-8.7)
[2024-09-23] MEDS: methylPREDNISolone sod succ 40 mg/mL INJ IVP (08:48)
[2024-09-23] MEDS: diphenhydrAMINE 50 mg/mL SDV 1mL 25 MG IVP (08:50)
[2024-09-23] MEDS: infliximab-abda 1,000 MG in sodium chloride 0.9% 150 ML 250 MG IV (09:20)
[2024-09-23 10:38] VITALS: BP 153/78; PULSE 61; RESP 16; TEMP 36.5; O2SAT 98
== END 2024-10-14 23:59 | disposition home or self-care (01) ==
PROVIDERS: PCP Nurse Practitioner Family; Visit Provider Internal Medicine Rheumatology
DX: L40.50 Arthropathic psoriasis, unspecified (principal)
CPT/HCPCS: 80076; 82565; 85025; 86140; 96375; 96413; A4222; J1200; J2919; J7050; J9999; Q5104

== ENCOUNTER 2024-11-04 07:31 | Oncology outpatient (recurring) (ONCR) | payer MEDICARE, OTHER, SELFPAY ==
[2024-11-04] MEDS: diphenhydrAMINE 50 mg/mL SDV 1mL 25 MG IVP (08:26)
[2024-11-04] MEDS: methylPREDNISolone sod succ 40 mg/mL INJ IVP (08:32)
[2024-11-04] MEDS: infliximab-abda 1,000 MG in sodium chloride 0.9% 150 ML 300 MG IV (09:11)
[2024-11-04 10:12] VITALS: BP 158/83; PULSE 59; TEMP 36.3
== END 2024-11-14 23:59 | disposition home or self-care (01) ==
PROVIDERS: PCP Nurse Practitioner Family; Visit Provider Internal Medicine Rheumatology
DX: L40.50 Arthropathic psoriasis, unspecified (principal); Z79.899 Other long term (current) drug therapy
CPT/HCPCS: 96375; 96413; A4222; J1200; J2919; J7050; J9999; Q5104

== ENCOUNTER → 2024-12-07 12:58 | Outpatient (BNVA) | payer MEDICARE, OTHER, SELFPAY | PROVIDERS: PCP Nurse Practitioner Family; Visit Provider Internal Medicine Rheumatology | DX: M06.9 Rheumatoid arthritis, unspecified (principal); L40.50 Arthropathic psoriasis, unspecified; Z79.899 Other long term (current) drug therapy; Z71.85 Encounter for immunization safety counseling; Z79.52 Long term (current) use of systemic steroids; Z86.718 Personal history of other venous thrombosis and embolism | CPT/HCPCS: 99214 ==

== ENCOUNTER 2024-12-16 07:32 | Oncology outpatient (recurring) (ONCR) | payer MEDICARE, OTHER, SELFPAY ==
[2024-12-16 08:26] LABS: Hematocrit 43.0 % (37-53); Hemoglobin 14.50 g/dL (11.27-16.99); Mean Corpuscular HGB Conc 33.7 g/dL (30-55); Mean Corpuscular Hemoglobin 31.7 pg (27-33); Mean Corpuscular Volume 93.9 fl (82-101); Nucleated Red Blood Cells % 0 %; Platelet Count 176 10^3/cmm (157-399); Red Blood Count 4.58 10^6/uL (3.85-5.65); White Blood Count 6.01 10^3/uL (3.29-11.43)
[2024-12-16] MEDS: methylPREDNISolone sod succ 40 mg/mL INJ IVP (08:35)
[2024-12-16] MEDS: diphenhydrAMINE 50 mg/mL SDV 1mL 25 MG IVP (08:38)
[2024-12-16 08:44] LABS: Alanine Aminotransferase 24 U/L (0-41); Albumin Level 4.1 g/dL (3.5-5.2); Alkaline Phosphatase 69 U/L (40-130); Aspartate Amino Transferase 18 U/L (0-40); Creatinine Clr Calc Pharmacy 118.4434; Globulin 3.2 g/dL (1.3-4.6); Total Protein 7.3 g/dL (6.6-8.7)
[2024-12-16] MEDS: infliximab-abda 1,000 MG in sodium chloride 0.9% 150 ML 250 MG IV (09:13)
[2024-12-16 10:33] VITALS: BP 149/82; PULSE 58; RESP 17; TEMP 36.2; O2SAT 96
== END 2025-01-14 23:59 | disposition home or self-care (01) ==
PROVIDERS: PCP Nurse Practitioner Family; Visit Provider Internal Medicine Rheumatology
DX: L40.50 Arthropathic psoriasis, unspecified (principal); Z79.899 Other long term (current) drug therapy
CPT/HCPCS: 80076; 82565; 85025; 86140; 96375; 96413; A4222; J1200; J2919; J7050; J9999; Q5104

== ENCOUNTER 2025-01-27 07:35 | Oncology outpatient (recurring) (ONCR) | payer MEDICARE, OTHER, SELFPAY ==
[2025-01-27 07:57] VITALS: BP 172/90; PULSE 65; TEMP 36.6; O2SAT 96
[2025-01-27] MEDS: diphenhydrAMINE 50 mg/mL SDV 1mL 25 MG IVP (08:28)
[2025-01-27] MEDS: methylPREDNISolone sod succ 40 mg/mL INJ IVP (08:32)
[2025-01-27] MEDS: infliximab-abda 1,000 MG in sodium chloride 0.9% 150 ML 150 MG IV (09:09)
[2025-01-27 10:42] VITALS: BP 157/82; PULSE 57; RESP 16; TEMP 36.1; O2SAT 93
== END 2025-02-13 23:59 | disposition home or self-care (01) ==
LOC: ONCMED 07:35
PROVIDERS: PCP Nurse Practitioner Family; Visit Provider Internal Medicine Rheumatology
DX: L40.50 Arthropathic psoriasis, unspecified (principal); Z79.899 Other long term (current) drug therapy
CPT/HCPCS: 96375; 96413; A4222; J1200; J2919; J7050; J9999; Q5104

== ENCOUNTER 2025-03-15 07:51 | Oncology outpatient (recurring) (ONCR) | payer MEDICARE, OTHER, SELFPAY ==
[2025-03-15 08:09] VITALS: BP 162/93; PULSE 163; RESP 16; TEMP 36.1; O2SAT 95
[2025-03-15] MEDS: diphenhydrAMINE 50 mg/mL SDV 1mL 25 MG IVP (08:33)
[2025-03-15 08:39] LABS: Hematocrit 46.0 % (37-53); Hemoglobin 15.60 g/dL (11.27-16.99); Mean Corpuscular HGB Conc 33.9 g/dL (30-55); Mean Corpuscular Hemoglobin 31.4 pg (27-33); Mean Corpuscular Volume 92.6 fl (82-101); Nucleated Red Blood Cells % 0 %; Platelet Count 170 10^3/cmm (157-399); Red Blood Count 4.97 10^6/uL (3.85-5.65); White Blood Count 6.82 10^3/uL (3.29-11.43)
[2025-03-15] MEDS: methylPREDNISolone sod succ 40 mg/mL INJ IVP (08:43)
[2025-03-15] MEDS: infliximab-abda 1,000 MG in sodium chloride 0.9% 250 ML 300 MG IV (09:27)
[2025-03-15 10:32] LABS: Alanine Aminotransferase 38 U/L (0-41); Albumin Level 4.4 g/dL (3.5-5.2); Alkaline Phosphatase 79 U/L (40-130); Aspartate Amino Transferase 21 U/L (0-40); Globulin 3.5 g/dL (1.3-4.6); Total Protein 7.9 g/dL (6.6-8.7)
[2025-03-15 11:06] VITALS: BP 152/82; PULSE 75; RESP 16; TEMP 36.1; O2SAT 99
== END 2025-03-16 23:59 | disposition home or self-care (01) ==
PROVIDERS: Internal Medicine Rheumatology; PCP Nurse Practitioner Family; Visit Provider Nurse Practitioner Family
DX: L40.50 Arthropathic psoriasis, unspecified (principal); Z79.899 Other long term (current) drug therapy; Z53.9 Procedure and treatment not carried out, unspecified reason
CPT/HCPCS: 36415; 80076; 82565; 85025; 85651; 86140; 96375; 96413; A4222; J1200; J2919; J7050; J9999; Q5104